=== PATIENT | male | born 1975 | race American Indian/Alaskan Native ===

== ENCOUNTER 2020-08-13 08:18 | Emergency (ER) | payer BC ==
[2020-08-13 10:37] VITALS: BP 187/139
[2020-08-13] MEDS ORDERED: amLODIPine 5 MG TAB PO ONE (10:44)
[2020-08-13] MEDS ORDERED: hydroCHLOROthiazide 25 MG TAB PO ONE ×2 (10:44→10:49)
--- NOTE | 2020-08-13 10:50 | Emergency Department Report ---
ED General Adult HPI - General Chief complaint: High BP Stated complaint: HBP Time Seen by Provider: 08/13/20 10:31 Source: patient Mode of arrival: Ambulatory Limitations: No Limitations - History of Present Illness Initial comments: The patient presents to the emergency department with a chief complaint of elevated blood pressure. Patient states that his blood pressure was 212/110 while at work today. Patient denies chest pain, shortness breath, or headache. Patient states he ran out of his blood pressure medication and January right before shutdown secondary to COVID. -: unknown Severity scale (0 -10): 0 Consistency: constant Improves with: none Worsens with: none Associated Symptoms: denies other symptoms Treatments Prior to Arrival: none - Related Data Previous Rx's Medication Instructions Recorded Last Taken Type amLODIPine [Norvasc] 10 mg PO DAILY #30 tab 08/13/20 Unknown Rx hydroCHLOROthiazide [Hctz] 12.5 mg PO QDAY #30 capsule 08/13/20 Unknown Rx ED Review of Systems ROS: Stated complaint: HBP Other details as noted in HPI Comment: All other systems reviewed and negative Constitutional: denies: chills, fever Eyes: denies: eye pain, eye discharge, vision change ENT: denies: ear pain, throat pain Respiratory: denies: cough, shortness of breath, wheezing Cardiovascular: denies: chest pain, palpitations Endocrine: no symptoms reported Gastrointestinal: denies: abdominal pain, nausea, diarrhea Genitourinary: denies: urgency, dysuria Musculoskeletal: denies: back pain, joint swelling, arthralgia Skin: denies: rash, lesions Neurological: denies: headache, weakness, paresthesias Psychiatric: denies: anxiety, depression Hematological/Lymphatic: denies: easy bleeding, easy bruising ED Past Medical Hx - Social History Smoking Status: Current Some Day Smoker Substance Use Type: None - Medications Home Medications: Home Medications Medication Instructions Recorded Confirmed Last Taken Type amLODIPine [Norvasc] 10 mg PO DAILY #30 tab 08/13/20 Unknown Rx hydroCHLOROthiazide [Hctz] 12.5 mg PO QDAY #30 capsule 08/13/20 Unknown Rx ED Physical Exam - General Limitations: No Limitations General appearance: alert, in no apparent distress - Head Head exam: Present: atraumatic, normocephalic - Eye Eye exam: Present: normal appearance, PERRL, EOMI - ENT ENT exam: Present: mucous membranes moist - Neck Neck exam: Present: normal inspection - Respiratory Respiratory exam: Present: normal lung sounds bilaterally. Absent: respiratory distress, wheezes, rales - Cardiovascular Cardiovascular Exam: Present: regular rate, normal rhythm. Absent: systolic murmur, diastolic murmur, rubs, gallop - GI/Abdominal GI/Abdominal exam: Present: soft, normal bowel sounds. Absent: distended, tenderness - Rectal Rectal exam: Present: deferred - Extremities Exam Extremities exam: Present: normal inspection - Back Exam Back exam: Present: normal inspection - Neurological Exam Neurological exam: Present: alert, oriented X3, CN II-XII intact. Absent: motor sensory deficit - Psychiatric Psychiatric exam: Present: normal affect, normal mood - Skin Skin exam: Present: warm, dry, intact, normal color. Absent: rash ED Course Vital Signs 08/13/20 08/13/20 08:31 10:37 Temperature 97.6 F Pulse Rate 104 H Respiratory 18 Rate Blood Pressure 192/130 Blood Pressure 192/130 187/139 [Right] O2 Sat by Pulse 99 Oximetry ED Medical Decision Making - Medical Decision Making Discussed plan of care with patient and need for outpatient follow up Critical care attestation.: If time is entered above; I have spent that time in minutes in the direct care of this critically ill patient, excluding procedure time. ED Disposition Clinical Impression: Hypertension Disposition: - TO HOME OR SELFCARE Is pt being admited?: No Does the pt Need Aspirin: No Condition: Stable Instructions: Hypertension (ED) Additional Instructions: return if have CP or SOB Prescriptions: amLODIPine [Norvasc] 10 mg PO DAILY #30 tab hydroCHLOROthiazide [Hctz] 12.5 mg PO QDAY #30 capsule Referrals: PRIMARY CAREMD [Primary Care Provider] - 3-5 Days [facility] [Outside] - 3-5 Days [facility] [Provider Group] - 3-5 Days [facility] [Provider Group] - 3-5 Days TESFAYE VALLE MD [Staff Physician] - 3-5 Days Time of Disposition: 10:46
== END 2020-08-13 11:38 | disposition home or self-care (01) ==
LOC: ED 08:18
DX: I10 Essential (primary) hypertension (principal); F17.200 Nicotine dependence, unspecified, uncomplicated; Z79.899 Other long term (current) drug therapy
CPT/HCPCS: 99282

== ENCOUNTER 2020-10-19 10:58 | Emergency (ER) | payer BC ==
--- NOTE | 2020-10-19 11:55 | Event Note ---
ED Screening Note Date of service: 10/19/20 Time: 11:54 ED Screening Note: Patient complains of chills, body aches, and an episode of shortness of breath last night Denies any current shortness of breath or chest pain Admits to diarrhea Also complains of elevated blood pressure-states had a blood pressure medicine x2 months Tachycardia noted on exam This initial assessment/diagnostic orders/clinical plan/treatment(s) is/are subject to change based on patients health status, clinical progression and re- assessment by fellow clinical providers in the ED. Further treatment and workup at subsequent clinical providers discretion. Patient/guardian urged not to elope from the ED as their condition may be serious if not clinically assessed and managed. Initial orders include: Labs Chest xr
--- NOTE | 2020-10-19 12:44 | XRay Report ---
CHEST 2 VIEWS INDICATION / CLINICAL INFORMATION: tachycardia, SOB. COMPARISON: None available. FINDINGS: SUPPORT DEVICES: None. HEART / MEDIASTINUM: No significant abnormality. LUNGS / PLEURA: No significant pulmonary or pleural abnormality. No pneumothorax. ADDITIONAL FINDINGS: No significant additional findings. IMPRESSION: No significant abnormality Signer Name: Hung Dominique MD FACR Signed: 10/19/2020 12:39 PM Workstation Name: [id number]
[2020-10-19 13:17] LABS: Basophils % (Auto) 0.3 % (0.0-1.8); Eosinophils # (Auto) 0.2 K/mm3 (0.0-0.4); Eosinophils % (Auto) 1.6 % (0.0-4.3); Hemoglobin 11.2 gm/dl (11.8-15.2); Lymphocytes # (Auto) 1.1 K/mm3 (1.2-5.4); Lymphocytes % (Auto) 9.7 % (13.4-35.0); Mean Corpuscular HGB Conc 32 % (32-34); Mean Corpuscular Volume 77 fl (84-94); Monocytes # (Auto) 0.3 K/mm3 (0.0-0.8); Platelet Count 359 K/mm3 (140-440); Red Blood Count 4.58 M/mm3 (3.65-5.03); Red Cell Distribution Width 13.9 % (13.2-15.2)
[2020-10-19 13:36] LABS: Alanine Aminotransferase 23 units/L (7-56); Albumin 3.7 g/dL (3.9-5); BUN/Creatinine Ratio 9; Blood Urea Nitrogen 12 mg/dL (9-20); Calcium 9.5 mg/dL (8.4-10.2); Hemolysis Index 2
[2020-10-19] MEDS ORDERED: SODIUM CHLORIDE 0.9% 1000 ML 1,000 ML IV ONE (15:01)
--- NOTE | 2020-10-19 15:03 | Emergency Department Report ---
ED General Adult HPI - General Chief complaint: Upper Respiratory Infection Stated complaint: BODY ACHES/BLOOD PRESSURE Time Seen by Provider: 10/19/20 11:29 Source: patient Mode of arrival: Ambulatory Limitations: No Limitations - History of Present Illness Initial comments: 45-year-old male with a past history of hypertension presents to the ER today c omplaining of generalized body aches. Patient states that he has been having this body aches for about a month mainly at night when he is working. He states that he feels like his symptoms is getting worse over the past month. He states he does not currently have a primary care doctor and therefore has not followed up with a doctor about his symptoms. He states that at night when he works he f eels very cold despite the temperature in the room. He states that his symptoms still occur off and on during the day but mainly at night while she is at work he also gets diaphoretic while he is at work. He states that he has been monitoring his temperatures, and he has noticed that his temperatures has been increasing from 96 degrees orally up to 98, but 98 is the highest temperature he is measured. He reports a "little" diarrhea 2 days ago but this has since resolved. Reports "a little" shortness of breath this morning but this is now better. He denies any cough, he denies any chest pain, abdominal pain or vomiting or UTI symptoms. Other than the hypertension, he denies past medical history such as coronary artery disease, diabetes, lung disease, or any other significant past medical history. Patient does admit that he stopped taking her blood pressure medication 2 months ago because he developed a rash while he was taking it. He has never since followed up with a provider to get restarted on a different medication. MD Complaint: Body aches -: month(s) (1 ) Severity scale (0 -10): 0 - Related Data Previous Rx's Medication Instructions Recorded Last Taken Type Ketorolac [Toradol] 10 mg PO Q6H PRN #30 tablet 10/19/20 Unknown Rx lisinopriL [Zestril TAB] 20 mg PO QDAY #30 tablet 10/19/20 Unknown Rx methOCARBAMOL [Robaxin TAB] 500 mg PO TID PRN #30 tablet 10/19/20 Unknown Rx Allergies Allergy/AdvReac Type Severity Reaction Status Date / Time No Known Allergies Allergy Unverified 10/19/20 11:10 ED Review of Systems ROS: Stated complaint: BODY ACHES/BLOOD PRESSURE Other details as noted in HPI Comment: All other systems reviewed and negative Constitutional: denies: chills, fever ENT: denies: ear pain, throat pain Respiratory: shortness of breath (" a little" this morning but this has since resolved. ) Cardiovascular: denies: chest pain, palpitations Gastrointestinal: diarrhea ("a little" 2 days ago). denies: abdominal pain, nausea Genitourinary: denies: urgency, dysuria Skin: denies: rash, lesions Neurological: denies: headache, weakness, paresthesias Psychiatric: denies: anxiety, depression ED Past Medical Hx - Past Medical History Previous Medical History?: Yes Hx Hypertension: Yes - Surgical History Past Surgical History?: No - Social History Smoking Status: Former Smoker Substance Use Type: Alcohol - Medications Home Medications: Home Medications Medication Instructions Recorded Confirmed Last Taken Type Ketorolac [Toradol] 10 mg PO Q6H PRN #30 tablet 10/19/20 Unknown Rx lisinopriL [Zestril TAB] 20 mg PO QDAY #30 tablet 10/19/20 Unknown Rx methOCARBAMOL [Robaxin TAB] 500 mg PO TID PRN #30 tablet 10/19/20 Unknown Rx ED Physical Exam - General Limitations: No Limitations General appearance: alert, in no apparent distress - Head Head exam: Present: atraumatic, normocephalic, normal inspection - Eye Eye exam: Present: normal appearance, PERRL, EOMI Pupils: Present: normal accommodation - ENT ENT exam: Present: normal exam, normal orophraynx, mucous membranes moist - Neck Neck exam: Present: normal inspection, full ROM. Absent: meningismus - Respiratory Respiratory exam: Present: normal lung sounds bilaterally. Absent: respiratory distress - Cardiovascular Cardiovascular Exam: Present: normal rhythm, tachycardia, normal heart sounds - GI/Abdominal GI/Abdominal exam: Present: soft. Absent: distended, tenderness - Extremities Exam Extremities exam: Present: normal inspection, full ROM - Back Exam Back exam: Present: full ROM - Neurological Exam Neurological exam: Present: alert, oriented X3, CN II-XII intact, normal gait - Psychiatric Psychiatric exam: Present: normal affect, normal mood - Skin Skin exam: Present: intact ED Course Vital Signs 10/19/20 10/19/20 10/19/20 11:10 11:14 14:27 Temperature 98.9 F 98.9 F Pulse Rate 121 H 120 H 110 H Respiratory 18 18 Rate Blood Pressure 162/108 Blood Pressure 162/108 [Right] O2 Sat by Pulse 100 97 Oximetry 10/19/20 15:16 Temperature 99.2 F Pulse Rate 111 H Respiratory 14 Rate Blood Pressure 165/115 Blood Pressure [Right] O2 Sat by Pulse 100 Oximetry ED Medical Decision Making - Lab Data Result diagrams: 10/19/20 12:37 10/19/20 12:37 - EKG Data EKG shows normal: sinus rhythm (98) Rate: normal - EKG Data Interpretation: no acute changes - Radiology Data Radiology results: report reviewed Critical care attestation.: If time is entered above; I have spent that time in minutes in the direct care of this critically ill patient, excluding procedure time. ED Disposition Clinical Impression: Muscle ache, Viral illness, Uncontrolled hypertension Disposition: - TO HOME OR SELFCARE Is pt being admited?: No Does the pt Need Aspirin: No Condition: Stable Instructions: Hypertension (ED), Musculoskeletal Pain, Viral Illness, Adult, Hypertension, Adult, [id number] Additional Instructions: I recommend that you start taking the blood pressure medication prescribed. I recommend follow up with PCP given on d/c instructions. You can follow up with health department for outpatient COVID 19 testing or urgent care. Return to ED if your symptoms changes or worsens. Prescriptions: methOCARBAMOL [Robaxin TAB] 500 mg PO TID PRN #30 tablet PRN Reason: Pain , Severe (7-10) Ketorolac [Toradol] 10 mg PO Q6H PRN #30 tablet PRN Reason: Pain lisinopriL [Zestril TAB] 20 mg PO QDAY #30 tablet Referrals: LIZA SIMON MD [Staff Physician] - 3-5 Days Forms: Work/School Release Form(ED) Time of Disposition: 16:45
[2020-10-19 15:18] VITALS: BP 165/115
[2020-10-19 16:09] LABS: Bilirubin,Urine NEG (Negative); Blood,Urine SM (Negative); Color,Urine Yellow (Yellow); Mucus,Urine FEW /HPF; RBC,Urine < 1.0 /HPF (0.0-6.0); WBC,Urine < 1.0 /HPF (0.0-6.0)
== END 2020-10-19 17:27 | disposition home or self-care (01) ==
LOC: ED 10:58
DX: B34.9 Viral infection, unspecified (principal); M79.10 Myalgia, unspecified site; I10 Essential (primary) hypertension; Z79.899 Other long term (current) drug therapy; Z87.891 Personal history of nicotine dependence
CPT/HCPCS: 36415; 71046; 80053; 81001; 84484; 85025; 93005; 96360; 99284; J7030

== ENCOUNTER 2021-11-30 09:33 | Emergency (ER) | payer SELFPAY ==
[2021-11-30] MEDS ORDERED: ACETAMINOPHEN 500 MG TAB PO ONE (13:19)
[2021-11-30] MEDS ORDERED: SODIUM CHLORIDE 0.9% 1000 ML 1,000 ML IV ONE (13:19)
--- NOTE | 2021-11-30 13:27 | Emergency Department Report ---
HPI - General Chief Complaint: Upper Respiratory Infection Time Seen by Provider: 11/30/21 10:55 - HPI HPI: 46-year-old male with history of hypertension and anemia presents complaining of 2 weeks of cough and congestion now with palpitations and shortness of breath on exertion. He says the symptoms started and were initially mild with just cough and congestion. However, over the past couple days he has noticed that his heart rate has been racing and he feels short of breath when walking even short distances. For this reason he decided to come in for further evaluation. He is fully vaccinated against COVID-19 but has not yet received a booster. He denies any associated headache, vision change, neck pain, chest pain, syncope, shortness of breath at rest, abdominal pain, nausea/vomiting, focal weakness, sensory changes, or any other complaints. ED Past Medical Hx - Past Medical History Hx Hypertension: Yes Additional medical history: anemia - Social History Smoking Status: Former Smoker Substance Use Type: Alcohol - Medications Home Medications: Home Medications Medication Instructions Recorded Confirmed Last Taken Type Ketorolac [Toradol] 10 mg PO Q6H PRN #30 tablet 10/19/20 Unknown Rx lisinopriL [Zestril TAB] 20 mg PO QDAY #30 tablet 10/19/20 Unknown Rx methOCARBAMOL [Robaxin TAB] 500 mg PO TID PRN #30 tablet 10/19/20 Unknown Rx Azithromycin [Zithromax Z-ABDIAZIZ] 0 mg PO DAILY #1 pack 11/30/21 Unknown Rx Omeprazole 40 mg PO DAILY #14 cap 11/30/21 Unknown Rx ED Review of Systems ROS: Stated complaint: FEVER Other details as noted in HPI Comment: All other systems reviewed and negative Constitutional: denies: chills, diaphoresis Eyes: denies: eye pain, vision change ENT: denies: throat pain, dental pain Respiratory: cough, SOB with exertion Cardiovascular: palpitations, dyspnea on exertion. denies: chest pain Gastrointestinal: denies: abdominal pain, nausea, vomiting, diarrhea, consti pation, melena, hematochezia Genitourinary: denies: dysuria, frequency Musculoskeletal: denies: back pain, arthralgia Skin: denies: rash, lesions Neurological: denies: headache, weakness, numbness Hematological/Lymphatic: denies: easy bleeding Physical Exam - Physical Exam Vital Signs: Vital Signs 11/30/21 11/30/21 11/30/21 09:37 09:41 13:06 Temperature 99.2 F Pulse Rate 127 H 110 H Respiratory 16 Rate Blood Pressure 128/65 O2 Sat by Pulse 91 93 97 Oximetry Physical Exam: GENERAL: Well developed and well nourished. No acute distress HEAD: Normocephalic. No obvious signs of trauma. ENT: Dry mucous membranes. EYES: Extraocular movements are intact. Pupils are equal round and reactive to light bilaterally NECK: Supple. Full ROM is intact. Trachea is midline. LUNGS: Nonlabored breathing. Equal chest rise bilaterally. Clear to auscultation bilaterally. CARDIOVASCULAR: Tachycardic but with regular rhythm. No murmurs or rubs. VASCULAR: Cap refill < 2 seconds ABDOMEN: Abdomen is soft and nondistended. There is no significant tenderness, guarding or rebound. SKIN: Skin is warm and dry NEURO: Patient is awake, alert, and oriented. nsh teacher II-XII grossly intact. No focal deficits. Normal motor and sensory exam throughout. Normal speech. MUSCULOSKELETAL: No obvious deformities. No significant tenderness. Normal ROM throughout. BACK/SPINE: No midline tenderness or step-offs of the C/T/L spine. No costovertebral angle tenderness. ED Course Vital Signs 11/30/21 11/30/21 11/30/21 09:37 09:41 13:06 Temperature 99.2 F Pulse Rate 127 H 110 H Respiratory 16 Rate Blood Pressure 128/65 O2 Sat by Pulse 91 93 97 Oximetry ED Medical Decision Making - Lab Data Result diagrams: 11/30/21 13:44 11/30/21 13:44 Lab Results 11/30/21 11/30/21 11/30/21 Range/Units 13:44 13:44 13:44 WBC 12.1 H (4.5-11.0) K/mm3 RBC 4.61 (3.65-5.03) M/mm3 Hgb 8.7 L (11.8-15.2) gm/dl Hct 29.8 L (35.5-45.6) % MCV 65 L (84-94) fl MCH 19 L (28-32) pg MCHC 29 L (32-34) % RDW 19.4 H (13.2-15.2) % Plt Count 577 H (140-440) K/mm3 Lymph % (Auto) 18.1 (13.4-35.0) % Bladen % (Auto) 2.9 (0.0-7.3) % Eos % (Auto) 2.9 (0.0-4.3) % Baso % (Auto) 0.3 (0.0-1.8) % Lymph # (Auto) 2.2 (1.2-5.4) K/mm3 Bladen # (Auto) 0.3 (0.0-0.8) K/mm3 Eos # (Auto) 0.3 (0.0-0.4) K/mm3 Baso # (Auto) 0.0 (0.0-0.1) K/mm3 Seg Neutrophils % 75.8 H (40.0-70.0) % Seg Neutrophils # 9.2 H (1.8-7.7) K/mm3 Sodium (137-145) mmol/L Potassium (3.6-5.0) mmol/L Chloride (98-107) mmol/L Carbon Dioxide (22-30) mmol/L Anion Gap mmol/L BUN (9-20) mg/dL Creatinine (0.8-1.3) mg/dL Estimated GFR ml/min BUN/Creatinine Ratio % Glucose (75-100) mg/dL Lactic Acid 1.00 (0.7-2.0) mmol/L Calcium (8.4-10.2) mg/dL Magnesium (1.7-2.3) mg/dL Total Bilirubin (0.1-1.2) mg/dL Direct Bilirubin (0-0.2) mg/dL Indirect Bilirubin mg/dL AST (5-40) units/L ALT (7-56) units/L Alkaline Phosphatase (35-129) units/L Troponin T 0.026 (0.00-0.029) ng/mL Total Protein (6.3-8.2) g/dL Albumin (3.9-5) g/dL Albumin/Globulin Ratio % 11/30/21 11/30/21 Range/Units 13:44 15:20 WBC (4.5-11.0) K/mm3 RBC (3.65-5.03) M/mm3 Hgb (11.8-15.2) gm/dl Hct (35.5-45.6) % MCV (84-94) fl MCH (28-32) pg MCHC (32-34) % RDW (13.2-15.2) % Plt Count (140-440) K/mm3 Lymph % (Auto) (13.4-35.0) % Bladen % (Auto) (0.0-7.3) % Eos % (Auto) (0.0-4.3) % Baso % (Auto) (0.0-1.8) % Lymph # (Auto) (1.2-5.4) K/mm3 Bladen # (Auto) (0.0-0.8) K/mm3 Eos # (Auto) (0.0-0.4) K/mm3 Baso # (Auto) (0.0-0.1) K/mm3 Seg Neutrophils % (40.0-70.0) % Seg Neutrophils # (1.8-7.7) K/mm3 Sodium 137 (137-145) mmol/L Potassium 3.7 (3.6-5.0) mmol/L Chloride 101.4 (98-107) mmol/L Carbon Dioxide 21 L (22-30) mmol/L Anion Gap 18 mmol/L BUN 11 (9-20) mg/dL Creatinine 0.7 L (0.8-1.3) mg/dL Estimated GFR > 60 ml/min BUN/Creatinine Ratio 16 % Glucose 90 (75-100) mg/dL Lactic Acid 0.90 (0.7-2.0) mmol/L Calcium 9.1 (8.4-10.2) mg/dL Magnesium 2.10 (1.7-2.3) mg/dL Total Bilirubin 0.20 (0.1-1.2) mg/dL Direct Bilirubin < 0.2 (0-0.2) mg/dL Indirect Bilirubin 0.0 mg/dL AST 33 (5-40) units/L ALT 33 (7-56) units/L Alkaline Phosphatase 49 (35-129) units/L Troponin T (0.00-0.029) ng/mL Total Protein 7.6 (6.3-8.2) g/dL Albumin 3.2 L (3.9-5) g/dL Albumin/Globulin Ratio 0.7 % - Radiology Data Radiology results: report reviewed - Medical Decision Making 46-year-old male presenting with 2 weeks of URI symptoms and shortness of breath with exertion. He is afebrile but with temp of 99.7. He is tachycardic with a heart rate in the 120s. Although it is charted that the patient was initially hypoxic, I was assured by the triage nurse that the patient was never hypoxic and this was entered in error. On exam he has dry mucous membranes. Lungs are clear to auscultation. He is tachycardic but with regular rhythm. He has no abdominal tenderness. There is no CVA tenderness. We will perform broad work- up with a full set of labs, chest x-ray, EKG and cultures. We will give 1 L of IV fluids and Tylenol and reassess. Labs reveal white blood cell count of 12.1. He is anemic with hemoglobin of 8.7 with low MCV. Kidney function is within normal limits and there are no significant electrolyte abnormalities. Lactic acid is negative. Troponin is negative. Heart rate has improved to the 110s on repeat assessment after IV fluids. Review of the patient's past medical records reveals that his last recorded hemoglobin from 1 year ago was 11. For this reason rectal exam was performed with nurse present as beet worker which reveals normal brown appearing stool which is Hemoccult positive. We will give 80 mg of Protonix and consult GI. At 4:38 PM I spoke with Dr. Forde of GI regarding the case. He recommends discharge with 14 days of PPI and follow-up in the office. The patient reports that all of his symptoms have resolved and he wants to be discharged home. Discussed the plan of care and he expressed understanding and agreement he will be discharged with 14 days of omeprazole. After discharge patient's chest x-ray came back revealing findings consistent with atypical pneumonia. I spoke with the patient over the phone regarding these findings and the need for self-isolation given the possibility of COVID-19 pneumonia. I also requested that he picking table worker a prescription for azithromycin which she says he will do tomorrow. I advised him to return to the emergency department at any time should he experience worsening symptoms or new health concerns. He expressed understanding and agreement with this plan of care. Critical care attestation.: If time is entered above; I have spent that time in minutes in the direct care of this critically ill patient, excluding procedure time. ED Disposition Clinical Impression: Symptomatic anemia, GI bleed, Upper respiratory infection, Pneumonia Disposition: 01 HOME / SELF CARE / HOMELESS Is pt being admited?: No Instructions: Upper Respiratory Infection, Adult, [id number], Gastr ointestinal Bleeding, [id number], Community-Acquired Pneumonia, Adult, Bacterial Pneumonia (ED) Additional Instructions: Your labs show that you are anemic with a hemoglobin of 8.7. There is blood present in your stool. You will need to follow-up with a primary care doctor in the next several days to have repeat labs drawn. Please take the prescription exactly as prescribed. You should also follow-up with a bread dumper which I have given you a referral for. Return to the emergency department should you develop any new concerning symptoms. Prescriptions: Omeprazole 40 mg PO DAILY #14 cap Azithromycin [Zithromax Z-ABDIAZIZ] 0 mg PO DAILY #1 pack Referrals: [facility] [Provider Group] - 3-5 Days CLEVE ARRIAGA MD [Staff Physician] - 3-5 Days
--- NOTE | 2021-11-30 14:17 | XRay Report ---
CHEST 2 VIEWS INDICATION / CLINICAL INFORMATION: sob, tachy. COMPARISON: 10/19/2020 FINDINGS: SUPPORT DEVICES: None. HEART / MEDIASTINUM: No significant abnormality. LUNGS / PLEURA: Patchy opacities involving the bilateral lungs, predominantly within the mid and lowe r lung zones. No significant effusion. No pneumothorax. ADDITIONAL FINDINGS: No significant additional findings. IMPRESSION: 1. Multilobar pneumonia, suspicious for viral and/or atypical etiology. Signer Name: Gonzalo Irvin MD Signed: 11/30/2021 2:12 PM Workstation Name: [email or web address]
[2021-11-30 14:19] LABS: Basophils % (Auto) 0.3 % (0.0-1.8); Eosinophils # (Auto) 0.3 K/mm3 (0.0-0.4); Eosinophils % (Auto) 2.9 % (0.0-4.3); Lymphocytes # (Auto) 2.2 K/mm3 (1.2-5.4); Lymphocytes % (Auto) 18.1 % (13.4-35.0); Mean Corpuscular HGB Conc 29 % (32-34); Monocytes # (Auto) 0.3 K/mm3 (0.0-0.8); Monocytes % (Auto) 2.9 % (0.0-7.3); Platelet Count 577 K/mm3 (140-440); Red Blood Count 4.61 M/mm3 (3.65-5.03); Red Cell Distribution Width 19.4 % (13.2-15.2)
[2021-11-30 14:21] LABS: Hematocrit 29.8 % (35.5-45.6); Hemoglobin 8.7 gm/dl (11.8-15.2); Mean Corpuscular Volume 65 fl (84-94)
[2021-11-30 14:45] LABS: Alanine Aminotransferase 33 units/L (7-56); Albumin 3.2 g/dL (3.9-5); Blood Urea Nitrogen 11 mg/dL (9-20); Calcium 9.1 mg/dL (8.4-10.2); Hemolysis Index 0
[2021-11-30 14:50] LABS: BUN/Creatinine Ratio 16; Bilirubin,Direct < 0.2 mg/dL (0-0.2)
[2021-11-30] MEDS ORDERED: PANTOPRAZOLE 40 MG INJ IV ONE (16:24)
[2021-11-30 16:30] VITALS: BP 113/71
== END 2021-11-30 17:41 | disposition home or self-care (01) ==
LOC: ED 09:33
DX: J18.9 Pneumonia, unspecified organism (principal); J06.9 Acute upper respiratory infection, unspecified; D64.9 Anemia, unspecified; K92.2 Gastrointestinal hemorrhage, unspecified
CPT/HCPCS: 36415; 71046; 80048; 80076; 82140; 82271; 83735; 84484; 85025; 87040; 96361; 96374; 99284; C9113; J7030; Q0162

== ENCOUNTER 2022-02-09 10:29 | Outpatient (CLI) | payer OTHER ==
--- NOTE | 2022-02-09 11:22 | XRay Report ---
CHEST 2 VIEWS INDICATION / CLINICAL INFORMATION: R06.02 SOB. COMPARISON: 11/30/21. FINDINGS: SUPPORT DEVICES: None. HEART / MEDIASTINUM: The heart size and pulmonary vasculature are normal. LUNGS / PLEURA: There are moderately severe patchy parenchymal opacities throughout both lungs which are predominantly groundglass in appearance and unchanged. Associated septal thickening is noted. Dis ease is most prominent in the mid to lower lung zones. No new pulmonary abnormality. No pleural effus ion. No pneumothorax. ADDITIONAL FINDINGS: No significant additional findings. IMPRESSION: Moderately severe patchy parenchymal opacities throughout both lungs have not changed sig nificantly. No new abnormality. Signer Name: Rey Mark MD Signed: 02/09/2022 11:17 AM Workstation Name: [id number]
== END 2022-02-09 10:30 | disposition home or self-care (01) ==
LOC: XRAY 10:29
PROVIDERS: ATTEND Internal Medicine
DX: R06.02 Shortness of breath (principal)
CPT/HCPCS: 71046

== ENCOUNTER 2022-04-01 12:18 | Inpatient (IN) | payer SELFPAY ==
[2022-04-01 13:56] LABS: Basophils # (Auto) 0.1 K/mm3 (0.0-0.1); Basophils % (Auto) 0.3 % (0.0-1.8); Eosinophils # (Auto) 0.1 K/mm3 (0.0-0.4); Eosinophils % (Auto) 0.7 % (0.0-4.3); Lymphocytes # (Auto) 1.9 K/mm3 (1.2-5.4); Lymphocytes % (Auto) 10.3 % (13.4-35.0); Mean Corpuscular HGB Conc 29 % (32-34); Monocytes # (Auto) 0.6 K/mm3 (0.0-0.8); Monocytes % (Auto) 3.2 % (0.0-7.3); Platelet Count 739 K/mm3 (140-440); Red Blood Count 4.38 M/mm3 (3.65-5.03); Red Cell Distribution Width 19.8 % (13.2-15.2)
[2022-04-01 13:58] LABS: Hematocrit 27.7 % (35.5-45.6); Hemoglobin 8.1 gm/dl (11.8-15.2); Mean Corpuscular Volume 63 fl (84-94)
[2022-04-01 14:07] LABS: INR 1.18 (0.87-1.13)
[2022-04-01 14:08] LABS: Partial Thromboplastin Time 44.2 Sec. (24.2-36.6)
[2022-04-01 14:11] LABS: Alanine Aminotransferase 26 units/L (7-56); Albumin 3.4 g/dL (3.9-5); Blood Urea Nitrogen 13 mg/dL (9-20); Calcium 8.7 mg/dL (8.4-10.2); Hemolysis Index 4
[2022-04-01 14:18] LABS: BUN/Creatinine Ratio 22
--- NOTE | 2022-04-01 14:22 | XRay Report ---
XR chest routine 2V INDICATION / CLINICAL INFORMATION: SOB. COMPARISON: 02/09/2022, 11/30/2019 FINDINGS: SUPPORT DEVICES: None. HEART / MEDIASTINUM: No significant abnormality. LUNGS / PLEURA: Lung parenchyma is not significantly changed. Unchanged reticulation and bronchiolect asis. Costophrenic sulci are sharp. No pneumothorax. ADDITIONAL FINDINGS: No significant additional findings. IMPRESSION: 1. No acute findings. Interstitial lung disease is similar. Signer Name: Lukas Lacy MD Signed: 04/01/2022 2:18 PM Workstation Name: [id number]
--- NOTE | 2022-04-01 15:44 | Emergency Department Report ---
ED Shortness of Breath HPI - General Chief Complaint: Dyspnea/Respdistress Stated Complaint: SOB Time Seen by Provider: 04/01/22 15:36 Source: patient Mode of arrival: Ambulatory Limitations: No Limitations - History of Present Illness Initial Comments: 46-year-old non-smoker male with a past medical history of hypertension and anemia presents to the hospital complaining of persistent dyspnea exertion, cough, and abnormal chest x-ray. Patient was seen here in November for similar symptoms. He was diagnosed with multifocal pneumonia and was discharged on azithromycin. Patient is vaccinated for COVID however, he did not receive the booster. He did obtain a COVID test in November after ED presentation and states it was negative. He has since followed with Dr. Russell as recently as 2 days ago. He reports that his x-ray is unchanged and he has been referred to a patient relations representative. Patient presents today due to his persistent worsening symptoms of cough, fatigue, and a 3 pound weight loss in 3 months. - Related Data Previous Rx's Medication Instructions Recorded Last Taken Type Ketorolac [Toradol] 10 mg PO Q6H PRN #30 tablet 10/19/20 Unknown Rx lisinopriL [Zestril TAB] 20 mg PO QDAY #30 tablet 10/19/20 Unknown Rx methOCARBAMOL [Robaxin TAB] 500 mg PO TID PRN #30 tablet 10/19/20 Unknown Rx Azithromycin [Zithromax Z-ABDIAZIZ] 0 mg PO DAILY #1 pack 11/30/21 Unknown Rx Omeprazole 40 mg PO DAILY #14 cap 11/30/21 Unknown Rx Allergies Allergy/AdvReac Type Severity Reaction Status Date / Time No Known Allergies Allergy Verified 11/30/21 09:40 ED Review of Systems ROS: Stated complaint: SOB Other details as noted in HPI Comment: All other systems reviewed and negative ED Past Medical Hx - Past Medical History Previous Medical History?: Yes Hx Hypertension: Yes Additional medical history: anemia, sob, PNEUMONIA - Surgical History Past Surgical History?: No - Social History Smoking Status: Never Smoker Substance Use Type: Alcohol - Medications Home Medications: Home Medications Medication Instructions Recorded Confirmed Last Taken Type Ketorolac [Toradol] 10 mg PO Q6H PRN #30 tablet 10/19/20 Unknown Rx lisinopriL [Zestril TAB] 20 mg PO QDAY #30 tablet 11/24/20 Unknown Rx methOCARBAMOL [Robaxin TAB] 500 mg PO TID PRN #30 tablet 10/19/20 Unknown Rx Azithromycin [Zithromax Z-ABDIAZIZ] 0 mg PO DAILY #1 pack 11/30/21 Unknown Rx Omeprazole 40 mg PO DAILY #14 cap 11/30/21 Unknown Rx ED Physical Exam - General Limitations: No Limitations - Other Other exam information: General: No acute distress Head: Atraumatic Eyes: normal appearance ENT: Moist mucous membranes Neck: Normal appearance, no midline tenderness Chest: Tachypnea at rest without wheezing or rales CV: Regular rate and rhythm Abdomen: Soft, normal bowel sounds, nontender, nondistended, no rebound or guarding Back: Normal inspection Extremity: Clubbing noted to nails Neuro: Alert O x 3, no facial asymmetry, speech clear, no gross motor sensory deficit Psych: Appropriate behavior Skin: No rash ED Course Vital Signs 04/01/22 04/01/22 04/01/22 15:40 15:41 15:43 Temperature 98.0 F Pulse Rate 106 H 106 H Pulse Rate [ Bilateral Throughout] Respiratory 42 H 24 20 Rate Respiratory Rate [Bilateral Throughout] Blood Pressure 102/68 [Right] O2 Sat by Pulse 100 100 100 Oximetry 04/01/22 16:48 Temperature Pulse Rate Pulse Rate [ 98 H Bilateral Throughout] Respiratory Rate Respiratory 18 Rate [Bilateral Throughout] Blood Pressure [Right] O2 Sat by Pulse Oximetry - Reevaluation(s) Reevaluation #1: 04/01/22 18:15 FVC Xopenex and Atrovent the ED patient's respirations were reassessed by respiratory therapist. At rest his O2 saturations were 95 to 97%. With ambulation his pulse ox drops down to 90% and his heart rate increases to the 130s with noticeable tachypnea ED Medical Decision Making - Lab Data Result diagrams: 04/01/22 13:39 04/01/22 13:39 Lab Results 04/01/22 04/01/22 04/01/22 Range/Units 13:39 13:39 13:39 WBC 18.1 H (4.5-11.0) K/mm3 RBC 4.38 (3.65-5.03) M/mm3 Hgb 8.1 L (11.8-15.2) gm/dl Hct 27.7 L (35.5-45.6) % MCV 63 L (84-94) fl MCH 19 L (28-32) pg MCHC 29 L (32-34) % RDW 19.8 H (13.2-15.2) % Plt Count 739 H (140-440) K/mm3 Lymph % (Auto) 10.3 L (13.4-35.0) % [place] % (Auto) 3.2 (0.0-7.3) % Eos % (Auto) 0.7 (0.0-4.3) % Baso % (Auto) 0.3 (0.0-1.8) % Lymph # (Auto) 1.9 (1.2-5.4) K/mm3 [place] # (Auto) 0.6 (0.0-0.8) K/mm3 Eos # (Auto) 0.1 (0.0-0.4) K/mm3 Baso # (Auto) 0.1 (0.0-0.1) K/mm3 Seg Neutrophils % 85.5 H (40.0-70.0) % Seg Neutrophils # 15.5 H (1.8-7.7) K/mm3 PT 16.4 H (12.2-14.9) Sec. INR 1.18 H (0.87-1.13) APTT 44.2 H (24.2-36.6) Sec. Sodium 133 L (137-145) mmol/L Potassium 4.4 (3.6-5.0) mmol/L Chloride 96.7 L (98-107) mmol/L Carbon Dioxide 21 L (22-30) mmol/L Anion Gap 20 mmol/L BUN 13 (9-20) mg/dL Creatinine 0.6 L (0.8-1.3) mg/dL Estimated GFR > 60 ml/min BUN/Creatinine Ratio 22 % Glucose 88 (75-100) mg/dL Lactic Acid (0.7-2.0) mmol/L Calcium 8.7 (8.4-10.2) mg/dL Total Bilirubin 0.40 (0.1-1.2) mg/dL AST 42 H (5-40) units/L ALT 26 (7-56) units/L Alkaline Phosphatase 51 (35-129) units/L Total Protein 7.2 (6.3-8.2) g/dL Albumin 3.4 L (3.9-5) g/dL Albumin/Globulin Ratio 0.9 % 04/01/22 Range/Units 16:04 WBC (4.5-11.0) K/mm3 RBC (3.65-5.03) M/mm3 Hgb (11.8-15.2) gm/dl Hct (35.5-45.6) % MCV (84-94) fl MCH (28-32) pg MCHC (32-34) % RDW (13.2-15.2) % Plt Count (140-440) K/mm3 Lymph % (Auto) (13.4-35.0) % [place] % (Auto) (0.0-7.3) % Eos % (Auto) (0.0-4.3) % Baso % (Auto) (0.0-1.8) % Lymph # (Auto) (1.2-5.4) K/mm3 [place] # (Auto) (0.0-0.8) K/mm3 Eos # (Auto) (0.0-0.4) K/mm3 Baso # (Auto) (0.0-0.1) K/mm3 Seg Neutrophils % (40.0-70.0) % Seg Neutrophils # (1.8-7.7) K/mm3 PT (12.2-14.9) Sec. INR (0.87-1.13) APTT (24.2-36.6) Sec. Sodium (137-145) mmol/L Potassium (3.6-5.0) mmol/L Chloride (98-107) mmol/L Carbon Dioxide (22-30) mmol/L Anion Gap mmol/L BUN (9-20) mg/dL Creatinine (0.8-1.3) mg/dL Estimated GFR ml/min BUN/Creatinine Ratio % Glucose (75-100) mg/dL Lactic Acid 1.00 (0.7-2.0) mmol/L Calcium (8.4-10.2) mg/dL Total Bilirubin (0.1-1.2) mg/dL AST (5-40) units/L ALT (7-56) units/L Alkaline Phosphatase (35-129) units/L Total Protein (6.3-8.2) g/dL Albumin (3.9-5) g/dL Albumin/Globulin Ratio % - EKG Data -: EKG Interpreted by Mi EKG shows normal: sinus rhythm, ST-T waves (No STEMI) Rate: tachycardia (113) - Radiology Data Radiology results: report reviewed XR chest routine 2V INDICATION / CLINICAL INFORMATION: SOB. COMPARISON: 02/09/2022, 11/30/2019 FINDINGS: SUPPORT DEVICES: None. HEART / MEDIASTINUM: No significant abnormality. LUNGS / PLEURA: Lung parenchyma is not significantly changed. Unchanged re ticulation and bronchiolectasis. Costophrenic sulci are sharp. No pneumothorax. ADDITIONAL FINDINGS: No significant additional findings. IMPRESSION: 1. No acute findings. Interstitial lung disease is similar. CTA CHEST WITH CONTRAST INDICATION / CLINICAL INFORMATION: sob, cough, wt loss, abn cxr x 4 months. TECHNIQUE: Axial CT images were obtained through the chest after injection of IV contrast. 3 plane MIP and/or 3D reconstructions were produced. All CT scans at this location are performed using CT dose reduction for ALARA by means of automated exposure control. COMPARISON: None available. FINDINGS: Central pulmonary arteries are patent without definite filling defect or evidence for PTE. The more peripheral pulmonary arteries are very difficult to visualize due to motion also contrast in the peripheral aspect of the lungs most significant in right lower lung. There is extensive adenopathy with paratracheal hilar adenopathy is seen. Left paratracheal node measures 2.9 cm. Extensive axillary adenopathy is also seen. There is extensive pulmonary opacities with some nodular densities and irregularity throughout the chest. Greatest opacities with chronic interstitial changes noted as well with fibrosis. No acute bone findings UPPER ABDOMEN: No acute findings. SKELETAL STRUCTURES: No significant osseous abnormality. IMPRESSION: 1. No central PTE is identified. The peripheral pulmonary arteries are very difficult to evaluate due to bolus of contrast and motion throughout the examination. A peripheral PTE cannot be completely excluded. 2. Extensive mediastinal paratracheal hilar and axillary adenopathy. Follow-up is recommended. 3. Extensive pulmonary opacities with groundglass densities fibrosis and interstitial nodularity. Multiple nodular densities are seen in bilateral lungs. Findings could represent infectious etiology however follow-up to exclude malignancy. - Medical Decision Making 46 yo male with progressively worsening respiratory symptoms and significantly abnormal chest x-ray and CT. Patient denies smoking use. No known diagnosis of COVID patient has ambulatory hypoxia with respiratory distress despite bronchodilator treatment. He will be admitted to the hospital for further treatment and pulmonology consultation. He was treated for pneumonia. Cultures, COVID, and prolactin levels pending. Pulmonolgist consult ordered - Differential Diagnosis Pneumonia, cancer, bronchitis, HIV, COVID Critical Care Time: No Critical care attestation.: If time is entered above; I have spent that time in minutes in the direct care of this critically ill patient, excluding procedure time. ED Disposition Clinical Impression: Interstitial lung disease, Leukocytosis, Anemia, Hypoxia, Multiple lung nodules on CT, Pneumonia Disposition: 09 ADMITTED INPATIENT Is pt being admited?: Yes Condition: Stable Instructions: Bacterial Pneumonia (ED) Referrals: LIZA RUSSELL MD [Primary Care Provider] - 3-5 Days Time of Disposition: 18:21 (Dr Koch/hospialist)
[2022-04-01] MEDS ORDERED: cefTRIAXone/NS 2 GM/100 ML 2 GM/100 ML BAG IV ONE (15:55)
[2022-04-01] MEDS ORDERED: SODIUM CHLORIDE 0.9% 1000 ML IV SOLN IV ONE (15:55)
[2022-04-01] MEDS ORDERED: AZITHROMYCIN/NS 500 MG/250 ML 500 MG/250 ML BAG IV ONE (15:55)
[2022-04-01] MEDS ORDERED: IPRATROPIUM 0.02% NEBU 2.5 ML IH ONE (16:03)
[2022-04-01] MEDS ORDERED: LEVALBUTEROL 0.63 MG/3 ML NEBU IH ONE (16:03)
--- NOTE | 2022-04-01 16:53 | Cat Scan Report ---
CTA CHEST WITH CONTRAST INDICATION / CLINICAL INFORMATION: sob, cough, wt loss, abn cxr x 4 months. TECHNIQUE: Axial CT images were obtained through the chest after injection of IV contrast. 3 plane ID P and/or 3D reconstructions were produced. All CT scans at this location are performed using CT dose reduction for ALARA by means of automated exposure control. COMPARISON: None available. FINDINGS: Central pulmonary arteries are patent without definite filling defect or evidence for PTE. The more p eripheral pulmonary arteries are very difficult to visualize due to motion also contrast in the perip heral aspect of the lungs most significant in right lower lung. There is extensive adenopathy with pa ratracheal hilar adenopathy is seen. Left paratracheal node measures 2.9 cm. Extensive axillary adeno esther is also seen. There is extensive pulmonary opacities with some nodular densities and irregularity throughout the ch est. Greatest opacities with chronic interstitial changes noted as well with fibrosis. No acute bone findings UPPER ABDOMEN: No acute findings. SKELETAL STRUCTURES: No significant osseous abnormality. IMPRESSION: 1. No central PTE is identified. The peripheral pulmonary arteries are very difficult to evaluate due to bolus of contrast and motion throughout the examination. A peripheral PTE cannot be completely ex cluded. 2. Extensive mediastinal paratracheal hilar and axillary adenopathy. Follow-up is recommended. 3. Extensive pulmonary opacities with groundglass densities fibrosis and interstitial nodularity. Mul tiple nodular densities are seen in bilateral lungs. Findings could represent infectious etiology how ever follow-up to exclude malignancy. Signer Name: Meño Dutton MD Signed: 04/01/2022 4:49 PM Workstation Name: [id number]
--- NOTE | 2022-04-01 20:41 | History and Physical Report ---
History of Present Illness Date of examination: 04/01/22 Date of admission: 04/01/2022 Chief complaint: Shortness of breah on minimal exertion Cough productive of sputum History of present illness: 46-year-old non-smoker male with a past medical history of hypertension and anemia presents to the hospital complaining of persistent dyspnea on minimal exertion, cough, and abnormal chest x-ray. Patient was seen here in November for similar symptoms. He was diagnosed with multifocal pneumonia and was discharged on azithromycin. Patient is vaccinated for COVID however, he did not receive the booster. He did obtain a COVID test in November after ED presentation and states it was negative. He has since followed with Dr. Russell as recently as 2 days ago. He reports that his x-ray is unchanged and he has been referred to a patroller. Patient presents today due to his persistent worsening symptoms of cough, fatigue, and a 3 pound weight loss in 3 months. - Past Medical History --Hypertension: Yes --Anemia, sob, PNEUMONIA - Surgical History -- No - Social History Smoking Status: Never Smoker Substance Use Type: Alcohol - Medications Home Medications: Home Medications Medication Instructions Recorded Confirmed Last Taken Type Ketorolac [Toradol] 10 mg PO Q6H PRN #30 tablet 10/19/20 Unknown Rx lisinopriL [Zestril TAB] 20 mg PO QDAY #30 tablet 10/19/20 Unknown Rx methOCARBAMOL [Robaxin TAB] 500 mg PO TID PRN #30 tablet 10/19/20 Unknown Rx Azithromycin [Zithromax Z-ABDIAZIZ] 0 mg PO DAILY #1 pack 11/30/21 Unknown Rx Omeprazole 40 mg PO DAILY #14 cap 11/30/21 Unknown Rx Review of Systems ROS: Stated complaint: SOB Other details as noted in HPI Comment: All other systems reviewed and negative Medications and Allergies Allergies Allergy/AdvReac Type Severity Reaction Status Date / Time No Known Allergies Allergy Verified 11/30/21 09:40 Home Medications Medication Instructions Recorded Confirmed Last Taken Type lisinopriL [Zestril TAB] 20 mg PO QDAY #30 tablet 10/19/20 04/02/22 Unknown Rx Exam - Constitutional Vitals: Temp Pulse Resp BP Pulse Ox 98.0 F 103 H 27 H 113/81 98 04/01/22 15:41 04/01/22 18:01 04/01/22 18:01 04/01/22 18:31 04/01/22 18:31 General appearance: Present: no acute distress, well-nourished - EENT Eyes: Present: PERRL ENT: hearing intact, clear oral mucosa - Neck Neck: Present: supple, normal ROM - Respiratory Respiratory effort: normal Respiratory: bilateral: CTA - Cardiovascular Heart Sounds: Present: S1 & S2. Absent: rub, click - Extremities Extremities: pulses symmetrical, No edema Peripheral Pulses: within normal limits - Abdominal General gastrointestinal: Present: soft, non-tender, non-distended, normal bowel sounds Male genitourinary: Present: normal - Integumentary Integumentary: Present: clear, warm, dry - Musculoskeletal Musculoskeletal: gait normal, strength equal bilaterally - Psychiatric Psychiatric: appropriate mood/affect, intact judgment & insight - Neurologic Neurologic: CNII-XII intact, moves all extremities Results - Labs CBC & Chem 7: 04/01/22 13:39 04/01/22 13:39 Labs: Laboratory Last Values WBC 18.1 K/mm3 (4.5-11.0) H 04/01/22 13:39 RBC 4.38 M/mm3 (3.65-5.03) 04/01/22 13:39 Hgb 8.1 gm/dl (11.8-15.2) L 04/01/22 13:39 Hct 27.7 % (35.5-45.6) L 04/01/22 13:39 MCV 63 fl (84-94) L 04/01/22 13:39 MCH 19 pg (28-32) L 04/01/22 13:39 MCHC 29 % (32-34) L 04/01/22 13:39 RDW 19.8 % (13.2-15.2) H 04/01/22 13:39 Plt Count 739 K/mm3 (140-440) H 04/01/22 13:39 Lymph % (Auto) 10.3 % (13.4-35.0) L 04/01/22 13:39 [place] % (Auto) 3.2 % (0.0-7.3) 04/01/22 13:39 Eos % (Auto) 0.7 % (0.0-4.3) 04/01/22 13:39 Baso % (Auto) 0.3 % (0.0-1.8) 04/01/22 13:39 Lymph # (Auto) 1.9 K/mm3 (1.2-5.4) 04/01/22 13:39 [place] # (Auto) 0.6 K/mm3 (0.0-0.8) 04/01/22 13:39 Eos # (Auto) 0.1 K/mm3 (0.0-0.4) 04/01/22 13:39 Baso # (Auto) 0.1 K/mm3 (0.0-0.1) 04/01/22 13:39 Seg Neutrophils % 85.5 % (40.0-70.0) H 04/01/22 13:39 Seg Neutrophils # 15.5 K/mm3 (1.8-7.7) H 04/01/22 13:39 PT 16.4 Sec. (12.2-14.9) H 04/01/22 13:39 INR 1.18 (0.87-1.13) H 04/01/22 13:39 APTT 44.2 Sec. (24.2-36.6) H 04/01/22 13:39 Sodium 133 mmol/L (137-145) L 04/01/22 13:39 Potassium 4.4 mmol/L (3.6-5.0) 04/01/22 13:39 Chloride 96.7 mmol/L (98-107) L 04/01/22 13:39 Carbon Dioxide 21 mmol/L (22-30) L 04/01/22 13:39 Anion Gap 20 mmol/L 04/01/22 13:39 BUN 13 mg/dL (9-20) 04/01/22 13:39 Creatinine 0.6 mg/dL (0.8-1.3) L 04/01/22 13:39 Estimated GFR > 60 ml/min 04/01/22 13:39 BUN/Creatinine Ratio 22 % 04/01/22 13:39 Glucose 88 mg/dL (75-100) 04/01/22 13:39 Lactic Acid 1.00 mmol/L (0.7-2.0) 04/01/22 16:04 Calcium 8.7 mg/dL (8.4-10.2) 04/01/22 13:39 Total Bilirubin 0.40 mg/dL (0.1-1.2) 04/01/22 13:39 AST 42 units/L (5-40) H 04/01/22 13:39 ALT 26 units/L (7-56) 04/01/22 13:39 Alkaline Phosphatase 51 units/L (35-129) 04/01/22 13:39 Total Protein 7.2 g/dL (6.3-8.2) 04/01/22 13:39 Albumin 3.4 g/dL (3.9-5) L 04/01/22 13:39 Albumin/Globulin Ratio 0.9 % 04/01/22 13:39 Short CBC 04/01/22 Range/Units 13:39 WBC 18.1 H (4.5-11.0) K/mm3 Hgb 8.1 L (11.8-15.2) gm/dl Hct 27.7 L (35.5-45.6) % Plt Count 739 H (140-440) K/mm3 BMP 04/01/22 13:39 Sodium 133 L Potassium 4.4 Chloride 96.7 L Carbon Dioxide 21 L BUN 13 Creatinine 0.6 L Glucose 88 Calcium 8.7 Liver Function 04/01/22 Range/Units 13:39 Total Bilirubin 0.40 (0.1-1.2) mg/dL AST 42 H (5-40) units/L ALT 26 (7-56) units/L Alkaline Phosphatase 51 (35-129) units/L Albumin 3.4 L (3.9-5) g/dL - Imaging and Cardiology Chest x-ray: report reviewed CT scan - chest: report reviewed Imaging and Cardiology: Chest CTA Will hold Xarelto for the peripheral pulmonary arteries are very difficult. Due to involvement throughout the examination and failure to care for PTE cannot be excluded Extensive mediastinal and paratracheal Hilar and axillary adenopathy. Follow- up is recommended. Extensive pulmonary opacities with groundglass densities fibrosis and interstitial nodularity. Multiple nodular densities are seen in bilateral Findings could represent infectious follow-up follow-up to exclude. Assessment and Plan Advance Directives: Yes (Full code) VTE prophylaxis?: Chemical Plan of care discussed with patient/family: Yes - Patient Problems (1) Acute respiratory failure with hypoxia Current Visit: Yes Status: Acute Plan to address problem: Sats below 90 on minimal exertion Oxygen supplementation (2) Sepsis Current Visit: Yes Status: Acute Plan to address problem: High White count IV Zithromax and IV Rocephin (3) Bilateral pneumonia Current Visit: Yes Status: Acute Plan to address problem: Unlikely Clinical picture consistent with ILD and Bronchiectasis May need Bronchoscopy for diagnosis and biopsy (4) Interstitial lung disease Current Visit: Yes Status: Chronic Plan to address problem: Possible ILD Defer to pulmonary On IV steroids (5) Bronchiectasis Current Visit: Yes Status: Chronic Qualifiers: Bronchiectasis type: with acute exacerbation Qualified Code(s): J47.1 - Bronchiectasis with (acute) exacerbation Plan to address problem: Patient has Bronchiectaic changes post covid Abx for now. 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 Bronchodilators needs f/u with pumonary on a regular basis (7) HTN (hypertension) Current Visit: Yes Status: Chronic Qualifiers: Hypertension type: primary hypertension Qualified Code(s): I10 - Essential (primary) hypertension Plan to address problem: Cont Lisinopril and adjust medications (8) Anemia Current Visit: Yes Status: Chronic Qualifiers: Anemia type: unspecified type Qualified Code(s): D64.9 - Anemia, unspecified Plan to address problem: Anemia work up Iron studies and folic acid and B12 levels (9) DVT prophylaxis Current Visit: Yes Status: Acute Plan to address problem: On anticoagulation and GI propylaxis (10) Advance care planning Current Visit: Yes Status: Acute Plan to address problem: Disease education conducted,care plan discussed diagnosis discussed ,pognosis discussed. patient is full code.patient acknowledges understanding and agreementwith care plan.plus 30 minutes
[2022-04-01] MEDS ORDERED: ONDANSETRON 4 MG/2 ML INJ IV PRN (20:43)
[2022-04-01] MEDS ORDERED: SODIUM CHLORIDE 0.9% 1000 ML 1,000 ML IV SCH (20:45)
[2022-04-01] MEDS ORDERED: oxyCODONE /ACETAMINOPHEN 5-325MG TAB PO PRN (20:48)
[2022-04-01] MEDS ORDERED: MORPHINE 2 MG/1 ML INJ IV PRN (20:48)
[2022-04-01] MEDS ORDERED: METOCLOPRAMIDE 10 MG/2 ML INJ IV PRN (20:48)
[2022-04-01] MEDS ORDERED: IPRATROPIUM/ALBUTEROL SULFATE 3 ML AMPUL.NEB IH PRN (20:51)
[2022-04-01] MEDS ORDERED: ALBUTEROL 2.5 MG/3 ML NEBU IH PRN (20:57)
[2022-04-01] MEDS ORDERED: HEPARIN 5,000 UNIT/1 ML VIAL SUB-Q SCH (22:00)
[2022-04-01] MEDS: LISINOPRIL 20 MG TAB PO SCH (23:17)
[2022-04-01] MEDS: methylPREDNISolone Sod Succinate 125 MG/2 ML INJ IV SCH (23:23)
[2022-04-02] MEDS ORDERED: guaiFENesin 200 MG TAB PO PRN (00:25)
[2022-04-02] MEDS: guaiFENesin 100 MG/5 ML ORAL LIQD PO PRN ×2 (02:36→21:37)
[2022-04-02] MEDS: PHENOL 1.4% 177 ML BOTTLE MM PRN (02:36)
[2022-04-02] MEDS: methylPREDNISolone Sod Succinate 125 MG/2 ML INJ IV SCH (05:55)
[2022-04-02 07:52] LABS: Hemoglobin 7.7 gm/dl (11.8-15.2); Mean Corpuscular HGB Conc 32 % (32-34); Platelet Count 690 K/mm3 (140-440); Red Blood Count 3.86 M/mm3 (3.65-5.03); Red Cell Distribution Width 19.7 % (13.2-15.2)
[2022-04-02] MEDS: IPRATROPIUM/ALBUTEROL SULFATE 3 ML AMPUL.NEB IH SCH ×3 (07:54→20:30)
[2022-04-02 08:01] LABS: Mean Corpuscular Volume 62 fl (84-94)
[2022-04-02 08:15] LABS: Alanine Aminotransferase 24 units/L (7-56); Albumin 2.9 g/dL (3.9-5); Blood Urea Nitrogen 16 mg/dL (9-20); Calcium 8.5 mg/dL (8.4-10.2); Hemolysis Index 0
[2022-04-02 08:16] LABS: Iron 11 ug/dL (49-181); Total Iron Binding Capacity 144 mcg/dL (250-450)
[2022-04-02 08:19] LABS: BUN/Creatinine Ratio 32
[2022-04-02 09:04] LABS: Band Neutrophils # (Manual) 0.2 K/mm3; Basophils % (Manual) 0 % (0.0-1.8); Eosinophils % (Manual) 0 % (0.0-4.3); Monocytes % (Manual) 0 % (0.0-7.3); Total Cells Counted 100
[2022-04-02 09:05] LABS: Anisocytosis 1+; Hypochromasia 2+; Platelet Estimate Consistent w Auto
--- NOTE | 2022-04-02 09:15 | Electrocardiograph Report ---
[facility] Test Date: 2022-04-01 Test Time: 13:37:09 Pat Name: ROSMERY SHIRLEY Department: Room: A353 Gender: M Hitting Coach: NOREEN : 1975 Requested By: ED DOC Order Number: [id number] Reading MD: Steven Valdez Measurements Intervals [place] Rate: 113 P: 52 DC: 152 QRS: 21 QRSD: 73 T: 51 QT: 322 QTc: 441 Interpretive Statements Sinus tachycardia No previous ECG available for comparison Electronically Signed On 04-02-2022 9:15:13 EDT by Steven Valdez
--- NOTE | 2022-04-02 09:24 | Electrocardiograph Report ---
[facility] Test Date: 2022-04-02 Test Time: 07:50:39 Pat Name: ROSMERY SHIRLEY Department: Room: A353 1 Gender: M Final Assembly Inspector: YOAN : 1975 Requested By: CHIP FRY Order Number: [id number] Reading MD: Steven Valdez Measurements Intervals [place] Rate: 80 P: 45 [place]: 170 QRS: -13 QRSD: 77 T: 25 QT: 382 QTc: 439 Interpretive Statements Sinus rhythm Compared to ECG 04/01/2022 13:37:09 Sinus tachycardia no longer present Electronically Signed On 04-02-2022 9:23:35 EDT by Steven aVldez
[2022-04-02] MEDS: PANTOPRAZOLE 40 MG TAB PO SCH (09:59)
[2022-04-02] MEDS: LISINOPRIL 20 MG TAB PO SCH (09:59)
[2022-04-02] MEDS ORDERED: NON-FORMULARY EACH (Omeprazole [Omeprazole] 40 MG Capsule.Dr) PO SCH (10:00)
--- NOTE | 2022-04-02 10:45 | Consultation ---
History of Present Illness Reason for consult: dyspnea History of present illness: 46-year-old non-smoker male with a past medical history of hypertension and anemia presents to the hospital complaining of persistent dyspnea on minimal exertion, cough, and abnormal chest x-ray. Patient was seen here in November for similar symptoms. He was diagnosed with multifocal pneumonia and was discharged on azithromycin. Patient is vaccinated for COVID however, he did not receive the booster. He did obtain a COVID test in November after ED presentation and states it was negative. Patient has conflicting information he was telling me that his COVID was positive he had pneumonia in November 2021 and since then he has been short of breath he has since followed with Dr. Russell as recently as 2 days ago. He reports that his x-ray is unchanged and he has been referred to a backup sawyer. Patient presents today due to his persistent worsening symptoms of cough, fatigue, and a 30 pound weight loss in 3 months. Patient denied any history of smoking drinking or substance abuse. He does have some night sweats and has lost 20 to 30 pounds in last few months. Cough is productive of clear sputum no hemoptysis. He denied any fever or chills. Past History Past Medical History: hypertension Medications and Allergies Allergies Allergy/AdvReac Type Severity Reaction Status Date / Time No Known Allergies Allergy Verified 11/30/21 09:40 Home Medications Medication Instructions Recorded Confirmed Last Taken Type lisinopriL [Zestril TAB] 20 mg PO QDAY #30 tablet 10/19/20 04/02/22 Unknown Rx Active Meds: Active Medications Acetaminophen (Acetaminophen 325 Mg Tab) 650 mg PO Q4H PRN PRN Reason: Pain MILD(1-3)/Fever >100.5/BOWEN Albuterol (Albuterol 2.5 Mg/3 Ml Nebu) 2.5 mg IH Q3HRT PRN PRN Reason: Wheezing Albuterol/Ipratropium (Ipratropium/Albuterol Sulfate 3 Ml Ampul.Neb) 1 ampul IH QIDRT GOGO Last Admin: 04/02/22 07:54 Dose: 1 ampul Azithromycin (Azithromycin 250 Mg Tab) 500 mg PO QPM GOGO Stop: 04/05/22 18:01 Guaifenesin (Guaifenesin 100 Mg/5 Ml Oral Liqd) 200 mg PO Q6HR PRN PRN Reason: Cough Last Admin: 04/02/22 02:36 Dose: 200 mg Heparin Sodium (Porcine) (Heparin 5,000 Unit/1 Ml Vial) 5,000 unit SUB-Q Q12HR [facility] Last Admin: 04/01/22 23:23 Dose: 5,000 unit Ceftriaxone Sodium (Rocephin/Ns 2 Gm/100 Ml) 2 gm in 100 mls @ 200 mls/hr IV Q24H [facility]; Protocol Stop: 04/05/22 23:59 Lisinopril (Lisinopril 20 Mg Tab) 20 mg PO QDAY [facility] Last Admin: 04/02/22 09:59 Dose: 20 mg Methocarbamol (Methocarbamol 500 Mg Tab) 500 mg PO TID PRN PRN Reason: Muscle Spasm Methylprednisolone Sodium Succinate (Methylprednisolone Sod Succinate 125 Mg/2 Ml Inj) 60 mg IV Q8HR [facility] Last Admin: 04/02/22 05:55 Dose: 60 mg Metoclopramide HCl (Metoclopramide 10 Mg/2 Ml Inj) 10 mg IV Q6H PRN PRN Reason: Nausea And Vomiting Morphine Sulfate (Morphine 2 Mg/1 Ml Inj) 2 mg IV Q4H PRN PRN Reason: Pain, Moderate (4-6) Ondansetron HCl (Ondansetron 4 Mg/2 Ml Inj) 4 mg IV Q8H PRN PRN Reason: Nausea And Vomiting Oxycodone/Acetaminophen (Oxycodone /Acetaminophen 5-325mg Tab) 1 tab PO Q6H PRN PRN Reason: Pain, Moderate (4-6) Pantoprazole Sodium (Pantoprazole 40 Mg Tab) 40 mg PO QDAC [facility] Last Admin: 04/02/22 09:59 Dose: 40 mg Phenol (Phenol 1.4% 177 Ml Bottle) 1 spray MM BID PRN PRN Reason: Sore Throat Last Admin: 04/02/22 02:36 Dose: 1 spray Sodium Chloride (Sodium Chloride 0.9% 10 Ml Flush Syringe) 10 ml IV BID [facility] Last Admin: 04/01/22 23:23 Dose: 10 ml Sodium Chloride (Sodium Chloride 0.9% 10 Ml Flush Syringe) 10 ml IV PRN PRN PRN Reason: LINE FLUSH Review of Systems All systems: negative Constitutional: weight loss Cardiovascular: shortness of breath, dyspnea on exertion Respiratory: cough, cough with sputum, shortness of breath, dyspnea on exertion Physical Examination Vital signs: Vital Signs Pulse Resp Pulse Ox 106 H 42 H 100 04/01/22 15:40 04/01/22 15:40 04/01/22 15:40 General appearance: no acute distress Eyes: non-icteric ENT: oropharynx moist Neck: supple, no lymphadenopathy, no JVD Effort: normal Ascultation: Bilateral: rhonchi Cardiovascular: regular rate and rhythm Gastrointestinal: normoactive bowel sounds, soft, non-tender Extremities: no cyanosis, no edema, pink and warm, other (Clubbing of the fingernails noted) Musculoskeletal: no deformities normal mental status mood appropriate Results - Laboratory Findings CBC and BMP: 04/02/22 06:32 04/02/22 06:32 PT/INR, D-dimer PT 16.4 Sec. (12.2-14.9) H 04/01/22 13:39 INR 1.18 (0.87-1.13) H 04/01/22 13:39 Abnormal lab findings: Abnormal Labs 04/01/22 04/01/22 04/01/22 13:39 13:39 13:39 WBC 18.1 H Hgb 8.1 L Hct 27.7 L MCV 63 L MCH 19 L MCHC 29 L RDW 19.8 H Plt Count 739 H Lymph % (Auto) 10.3 L Seg Neutrophils % 85.5 H Seg Neuts % (Manual) Lymphocytes % (Manual) Seg Neutrophils # 15.5 H Seg Neutrophils # Man Lymphocytes # (Manual) PT 16.4 H INR 1.18 H APTT 44.2 H Sodium 133 L Potassium Chloride 96.7 L Carbon Dioxide 21 L Creatinine 0.6 L Glucose Iron TIBC AST 42 H Albumin 3.4 L 04/02/22 04/02/22 04/02/22 06:32 06:32 06:32 WBC 16.7 H Hgb 7.7 L Hct 24.0 L MCV 62 L MCH 20 L MCHC RDW 19.7 H Plt Count 690 H Lymph % (Auto) Seg Neutrophils % Seg Neuts % (Manual) 95.0 H Lymphocytes % (Manual) 4.0 L Seg Neutrophils # Seg Neutrophils # Man 15.9 H Lymphocytes # (Manual) 0.7 L PT INR APTT Sodium 135 L Potassium 5.4 H D Chloride Carbon Dioxide Creatinine 0.5 L Glucose 120 H Iron 11 L TIBC 144 L AST Albumin 2.9 L - Diagnostic Findings Chest x-ray: image reviewed (Extensive bilateral lower lobe infiltrate) CT scan - chest: image reviewed (Mediastinal lymphadenopathy with diffuse interstitial alveolar groundglass opacity bilaterally more distributed in the lower lobes and peripherally.) Assessment and Plan Impression: Bilateral interstitial lung disease inflammatory versus infectious. Mediastinal adenopathy related to above Dyspnea related to above History of hypertension Recommendation: Sputum for gram stain and C&S and AFB smear and culture Check for markers of inflammation such as CRP Basic check for collagen vascular disorder and sarcoidosis Continue with antibiotic therapy Consider stopping steroids it may affect the work-up and the results of the testing Suspect patient may eventually require a biopsy procedure
--- NOTE | 2022-04-02 10:58 | Progress Note ---
Assessment and Plan Assessment and plan: 46-year-old non-smoker male with a past medical history of hypertension and anemia presents to the hospital complaining of persistent dyspnea on minimal exertion, cough, and abnormal chest x-ray. Patient was seen here in November for similar symptoms. He was diagnosed with multifocal pneumonia and was discharged on azithromycin. Patient is vaccinated for COVID however, he did not receive the booster. He did obtain a COVID test in November after ED presentation and states it was negative. He has since followed with Dr. Russell as recently as 2 days ago. He reports that his x-ray is unchanged and he has been referred to a hydrochloric area supervisor. Patient presents today due to his persistent worsening symptoms of cough, fatigue, and a 3 pound weight loss in 3 months. Chest x-ray: image reviewed (Extensive bilateral lower lobe infiltrate) CT scan - chest: image reviewed (Mediastinal lymphadenopathy with diffuse interstitial alveolar groundglass opacity bilaterally more distributed in the lower lobes and peripherally.) #Acute hypoxic respiratory failure #Sepsis secondary to possible gram-negative bill pneumonia #Bilateral interstitial lung disease inflammatory versus infectious. #Mediastinal adenopathy related to above #Post COVID fatigue syndrome #Possible bronchiectasis secondary to post-COVID #Anemia likely of chronic disorder #Hypertension #Tobacco abuse #Thrombocytosis Plan -Discussed with pulmonology agree with current work-up which include: Sputum for gram stain and C&S and AFB smear and culture, Check for markers of inflammation such as CRP, Basic check for collagen vascular disorder and sarcoidosis and possible bronchoscopy for biopsy -Continue with antibiotic therapy -Doubt that the patient has any reactive airway disease as a result we will steroids it may affect the work-up and the results of the testing -If no clinical improvement will obtain ID consultation -Continue nebulizer as needed - The combination of weight loss, chronic cough, severe anemia, adenopathy and thrombocytosis lead to considering chronic infection, inflammation, malignancy or otherwise -We will check stool for occult blood and if positive will obtain GI evaluation -Extensive counseling on tobacco use cessation presented to the patient he verbalized understanding -DVT and GI prophylaxis we will use SCDs for DVT prophylaxis at this time considering severe anemia - Called and updated the patients brother -35 minutes advance care planning including preventive care discussion. Patient verbalized understanding. History Interval history: Patient seen and examined this morning still with mild shortness of breath. Tachycardia. No chest pain or fever reported at this time. Hospitalist Physical - Physical exam Narrative exam: VITAL SIGNS: Reviewed. GENERAL: The patient appears older than stated age, mild respiratory distress but no increased work of breathing or accessory muscle use vital signs as documented. HEAD: No signs of head trauma. EYES: Pupils are equal. Extraocular motions intact. EARS: Hearing grossly intact. MOUTH: Oropharynx is normal. NECK: No adenopathy, no JVD. CHEST: Chest with diminished breath sounds bilaterally. No wheezes, rales, or rhonchi. CARDIAC: Regular rate and rhythm. S1 and S2, without murmurs, gallops, or rubs. VASCULAR: No Edema. Peripheral pulses normal and equal in all extremities. ABDOMEN: Soft, non tender and non distended. No rebound or guarding, and no masses palpated. Bowel Sounds normal. MUSCULOSKELETAL: Good range of motion of all major joints. Extremities without cyanosis or edema. Clubbing noted bilateral upper extremities NEUROLOGIC EXAM: Alert and oriented x 3 No focal sensory or strength deficits. Speech normal. Follows commands. PSYCHIATRIC: Mood normal. SKIN: detail exam as documented in skin assessment - Constitutional Vitals: Temp Pulse Resp BP Pulse Ox 97.5 F L 89 16 103/72 100 04/02/22 04:19 04/02/22 04:19 04/02/22 04:19 04/02/22 04:19 04/02/22 04:19 General appearance: Present: no acute distress, well-nourished Results - Labs CBC & Chem 7: 04/02/22 06:32 04/02/22 06:32 Labs: Laboratory Last Values WBC 16.7 K/mm3 (4.5-11.0) H 04/02/22 06:32 RBC 3.86 M/mm3 (3.65-5.03) 04/02/22 06:32 Hgb 7.7 gm/dl (11.8-15.2) L 04/02/22 06:32 Hct 24.0 % (35.5-45.6) L 04/02/22 06:32 MCV 62 fl (84-94) L 04/02/22 06:32 MCH 20 pg (28-32) L 04/02/22 06:32 MCHC 32 % (32-34) 04/02/22 06:32 RDW 19.7 % (13.2-15.2) H 04/02/22 06:32 Plt Count 690 K/mm3 (140-440) H 04/02/22 06:32 Lymph % (Auto) 10.3 % (13.4-35.0) L 04/01/22 13:39 [place] % (Auto) 3.2 % (0.0-7.3) 04/01/22 13:39 Eos % (Auto) 0.7 % (0.0-4.3) 04/01/22 13:39 Baso % (Auto) 0.3 % (0.0-1.8) 04/01/22 13:39 Lymph # (Auto) 1.9 K/mm3 (1.2-5.4) 04/01/22 13:39 [place] # (Auto) 0.6 K/mm3 (0.0-0.8) 04/01/22 13:39 Eos # (Auto) 0.1 K/mm3 (0.0-0.4) 04/01/22 13:39 Baso # (Auto) 0.1 K/mm3 (0.0-0.1) 04/01/22 13:39 Add Manual Diff Complete 04/02/22 06:32 Total Counted 100 04/02/22 06:32 Seg Neutrophils % Stucco Applicator 04/02/22 06:32 Seg Neuts % (Manual) 95.0 % (40.0-70.0) H 04/02/22 06:32 Band Neutrophils % 1.0 % 04/02/22 06:32 Lymphocytes % (Manual) 4.0 % (13.4-35.0) L 04/02/22 06:32 Reactive Lymphs % (Man) 0 % 04/02/22 06:32 Monocytes % (Manual) 0 % (0.0-7.3) 04/02/22 06:32 Eosinophils % (Manual) 0 % (0.0-4.3) 04/02/22 06:32 Basophils % (Manual) 0 % (0.0-1.8) 04/02/22 06:32 Metamyelocytes % 0 % 04/02/22 06:32 Myelocytes % 0 % 04/02/22 06:32 Promyelocytes % 0 % 04/02/22 06:32 Blast Cells % 0 % 04/02/22 06:32 Nucleated RBC % Not Reportable 04/02/22 06:32 Seg Neutrophils # 15.5 K/mm3 (1.8-7.7) H 04/01/22 13:39 Seg Neutrophils # Man 15.9 K/mm3 (1.8-7.7) H 04/02/22 06:32 Band Neutrophils # 0.2 K/mm3 04/02/22 06:32 Lymphocytes # (Manual) 0.7 K/mm3 (1.2-5.4) L 04/02/22 06:32 Abs React Lymphs (Man) 0.0 K/mm3 04/02/22 06:32 Monocytes # (Manual) 0.0 K/mm3 (0.0-0.8) 04/02/22 06:32 Eosinophils # (Manual) 0.0 K/mm3 (0.0-0.4) 04/02/22 06:32 Basophils # (Manual) 0.0 K/mm3 (0.0-0.1) 04/02/22 06:32 Metamyelocytes # 0.0 K/mm3 04/02/22 06:32 Myelocytes # 0.0 K/mm3 04/02/22 06:32 Promyelocytes # 0.0 K/mm3 04/02/22 06:32 Blast Cells # 0.0 K/mm3 04/02/22 06:32 WBC Morphology Not Reportable 04/02/22 06:32 Hypersegmented Neuts Not Reportable 04/02/22 06:32 Hyposegmented Neuts Not Reportable 04/02/22 06:32 Hypogranular Neuts Not Reportable 04/02/22 06:32 Smudge Cells Not Reportable 04/02/22 06:32 Toxic Granulation Not Reportable 04/02/22 06:32 Toxic Vacuolation Not Reportable 04/02/22 06:32 Dohle Bodies Not Reportable 04/02/22 06:32 Pelger-Huet Anomaly Not Reportable 04/02/22 06:32 Zach Rods Not Reportable 04/02/22 06:32 Platelet Estimate Consistent w auto 04/02/22 06:32 Clumped Platelets Not Reportable 04/02/22 06:32 Plt Clumps, EDTA Not Reportable 04/02/22 06:32 Large Platelets Not Reportable 04/02/22 06:32 Giant Platelets Not Reportable 04/02/22 06:32 Platelet Satelliting Not Reportable 04/02/22 06:32 Plt Morphology Comment Not Reportable 04/02/22 06:32 RBC Morphology Not Reportable 04/02/22 06:32 Dimorphic RBCs Not Reportable 04/02/22 06:32 Polychromasia Not Reportable 04/02/22 06:32 Hypochromasia 2+ 04/02/22 06:32 Poikilocytosis Not Reportable 04/02/22 06:32 Anisocytosis 1+ 04/02/22 06:32 Microcytosis 2+ 04/02/22 06:32 Macrocytosis Not Reportable 04/02/22 06:32 Spherocytes Not Reportable 04/02/22 06:32 Pappenheimer Bodies Not Reportable 04/02/22 06:32 Sickle Cells Not Reportable 04/02/22 06:32 Target Cells Not Reportable 04/02/22 06:32 Tear Drop Cells Not Reportable 04/02/22 06:32 Ovalocytes Not Reportable 04/02/22 06:32 Helmet Cells Not Reportable 04/02/22 06:32 Marquis-Dobson Bodies Not Reportable 04/02/22 06:32 [place] Rings Not Reportable 04/02/22 06:32 Hayes Cells Not Reportable 04/02/22 06:32 Bite Cells Not Reportable 04/02/22 06:32 Crenated Cell Not Reportable 04/02/22 06:32 Elliptocytes Not Reportable 04/02/22 06:32 Acanthocytes (Spur) Not Reportable 04/02/22 06:32 Rouleaux Not Reportable 04/02/22 06:32 Hemoglobin C Crystals Not Reportable 04/02/22 06:32 Schistocytes Not Reportable 04/02/22 06:32 Malaria parasites Not Reportable 04/02/22 06:32 Maxim Bodies Not Reportable 04/02/22 06:32 Hem Pathologist Commnt No 04/02/22 06:32 PT 16.4 Sec. (12.2-14.9) H 04/01/22 13:39 INR 1.18 (0.87-1.13) H 04/01/22 13:39 APTT 44.2 Sec. (24.2-36.6) H 04/01/22 13:39 Sodium 135 mmol/L (137-145) L 04/02/22 06:32 Potassium 5.4 mmol/L (3.6-5.0) H D 04/02/22 06:32 Chloride 101.9 mmol/L (98-107) 04/02/22 06:32 Carbon Dioxide 22 mmol/L (22-30) 04/02/22 06:32 Anion Gap 17 mmol/L 04/02/22 06:32 BUN 16 mg/dL (9-20) 04/02/22 06:32 Creatinine 0.5 mg/dL (0.8-1.3) L 04/02/22 06:32 Estimated GFR > 60 ml/min 04/02/22 06:32 BUN/Creatinine Ratio 32 % 04/02/22 06:32 Glucose 120 mg/dL (75-100) H 04/02/22 06:32 Lactic Acid 1.00 mmol/L (0.7-2.0) 04/01/22 16:04 Calcium 8.5 mg/dL (8.4-10.2) 04/02/22 06:32 Iron 11 ug/dL (49-181) L 04/02/22 06:32 TIBC 144 mcg/dL (250-450) L 04/02/22 06:32 Total Bilirubin < 0.20 mg/dL (0.1-1.2) 04/02/22 06:32 AST 30 units/L (5-40) 04/02/22 06:32 ALT 24 units/L (7-56) 04/02/22 06:32 Alkaline Phosphatase 49 units/L (35-129) 04/02/22 06:32 Total Protein 6.7 g/dL (6.3-8.2) 04/02/22 06:32 Albumin 2.9 g/dL (3.9-5) L 04/02/22 06:32 Albumin/Globulin Ratio 0.8 % 04/02/22 06:32 Procalcitonin 0.42 ng/mL (<0.15) 04/01/22 13:39 Microbiology: Microbiology 04/01/22 16:04 Peripheral/Venous Blood Culture - Preliminary Culture in Progress 04/01/22 16:04 Peripheral/Venous Blood Culture - Preliminary Culture in Progress Pruett/IV: Voiding Method Toilet Active Medications - Current Medications Current Medications: Generic Name Dose Route Start Last Admin Trade Name Freq PRN Reason Stop Dose Admin Acetaminophen 650 mg 04/01/22 20:43 Acetaminophen 325 Mg Tab PO Q4H PRN Pain MILD(1-3)/Fever >100.5/BOWEN Albuterol 2.5 mg 04/01/22 20:57 Albuterol 2.5 Mg/3 Ml Nebu IH Q3HRT PRN Wheezing Albuterol/Ipratropium 1 ampul 04/02/22 08:00 04/02/22 07:54 Ipratropium/Albuterol Sulfate 3 Ml Ampul.Neb IH 1 ampul QIDRT GOGO Administration Azithromycin 500 mg 04/02/22 18:00 Azithromycin 250 Mg Tab PO 04/05/22 18:01 QPM GOGO Guaifenesin 200 mg 04/02/22 00:43 04/02/22 02:36 Guaifenesin 100 Mg/5 Ml Oral Liqd PO 200 mg Q6HR PRN Administration Cough Heparin Sodium (Porcine) 5,000 unit 04/01/22 22:00 04/01/22 23:23 Heparin 5,000 Unit/1 Ml Vial SUB-Q 5,000 unit Q12HR GOGO Administration Ceftriaxone Sodium 2 gm in 100 mls @ 200 mls/hr 04/02/22 17:00 Rocephin/Ns 2 Gm/100 Ml IV 04/05/22 23:59 Q24H [facility] Protocol Lisinopril 20 mg 04/01/22 21:00 04/02/22 09:59 Lisinopril 20 Mg Tab PO 20 mg QDAY GOGO Administration Methocarbamol 500 mg 04/01/22 20:41 Methocarbamol 500 Mg Tab PO TID PRN Muscle Spasm Metoclopramide HCl 10 mg 04/01/22 20:48 Metoclopramide 10 Mg/2 Ml Inj IV Q6H PRN Nausea And Vomiting Morphine Sulfate 2 mg 04/01/22 20:48 Morphine 2 Mg/1 Ml Inj IV Q4H PRN Pain, Moderate (4-6) Ondansetron HCl 4 mg 04/01/22 20:43 Ondansetron 4 Mg/2 Ml Inj IV Q8H PRN Nausea And Vomiting Oxycodone/Acetaminophen 1 tab 04/01/22 20:48 Oxycodone /Acetaminophen 5-325mg Tab PO Q6H PRN Pain, Moderate (4-6) Pantoprazole Sodium 40 mg 04/02/22 07:30 04/02/22 09:59 Pantoprazole 40 Mg Tab PO 40 mg QDAC GOGO Administration Phenol 1 spray 04/02/22 00:17 04/02/22 02:36 Phenol 1.4% 177 Ml Bottle MM 1 spray BID PRN Administration Sore Throat Sodium Chloride 10 ml 04/01/22 22:00 04/01/22 23:23 Sodium Chloride 0.9% 10 Ml Flush Syringe IV 10 ml BID GOGO Administration Sodium Chloride 10 ml 04/01/22 20:43 Sodium Chloride 0.9% 10 Ml Flush Syringe IV PRN PRN LINE FLUSH Sodium Polystyrene Sulfonate 30 gm 04/02/22 10:56 Sodium Polystyrene 15 Gm/60 Ml Oral Liqd PO 04/02/22 10:57 ONCE ONE
[2022-04-02] MEDS ORDERED: SODIUM POLYSTYRENE 15 GM/60 ML ORAL LIQD PO NR ×2 (11:30→23:30)
[2022-04-02 13:10] LABS: C-Reactive Protein 18.1 mg/dL (0.00-1.30)
[2022-04-02] MEDS ORDERED: AZITHROMYCIN/NS 500 MG/250 ML 500 MG/250 ML BAG IV SCH (17:00)
[2022-04-02] MEDS: cefTRIAXone/NS 2 GM/100 ML 2 GM/100 ML BAG IV SCH (19:20)
[2022-04-02] MEDS: AZITHROMYCIN 250 MG TAB PO SCH (19:21)
[2022-04-03] MEDS: SODIUM CHLORIDE 0.9% 1000 ML 1,000 ML IV SCH (04:45)
[2022-04-03 06:55] LABS: Hematocrit 24.3 % (35.5-45.6); Hemoglobin 7.6 gm/dl (11.8-15.2); Mean Corpuscular HGB Conc 31 % (32-34); Platelet Count 724 K/mm3 (140-440); Red Blood Count 3.81 M/mm3 (3.65-5.03); Red Cell Distribution Width 19.9 % (13.2-15.2)
[2022-04-03 07:20] LABS: Blood Urea Nitrogen 21 mg/dL (9-20); Calcium 8.6 mg/dL (8.4-10.2); Hemolysis Index 1
[2022-04-03 07:22] LABS: BUN/Creatinine Ratio 42
[2022-04-03 08:49] LABS: Mean Corpuscular Volume 64 fl (84-94)
[2022-04-03] MEDS: IPRATROPIUM/ALBUTEROL SULFATE 3 ML AMPUL.NEB IH SCH ×3 (10:22→20:51)
--- NOTE | 2022-04-03 11:28 | Progress Note ---
Assessment and Plan Impression: Bilateral interstitial lung disease inflammatory versus infectious. Mediastinal adenopathy related to above Dyspnea related to above History of hypertension Elevated CRP suggest inflammatory process Recommendation: Await sputum collection for gram stain and C&S and AFB smear and culture Basic check for collagen vascular disorder and sarcoidosis, pending Continue with antibiotic therapy Monitor off steroids Suspect patient may eventually require a biopsy procedure Subjective Date of service: 04/03/22 Interval history: Patient feeling much better. Slept well. Less shortness of breath. Objective Vital Signs - 12hr 04/03/22 04:55 Temperature 98.0 F Pulse Rate 91 H Respiratory 16 Rate Blood Pressure 109/73 O2 Sat by Pulse 97 Oximetry Constitutional: no acute distress Eyes: non-icteric ENT: oropharynx moist Neck: supple, no lymphadenopathy, no JVD Effort: normal Ascultation: Bilateral: rhonchi Cardiovascular: regular rate and rhythm Gastrointestinal: normoactive bowel sounds, soft, non-tender Extremities: no cyanosis, no edema, pink and warm, other (Clubbing of the fingernails noted) Neurologic: normal mental status Psychiatric: mood appropriate CBC and BMP: 04/03/22 06:03 04/03/22 06:03 ABG, PT/INR, D-dimer: PT/INR, D-dimer PT 16.4 Sec. (12.2-14.9) H 04/01/22 13:39 INR 1.18 (0.87-1.13) H 04/01/22 13:39 Abnormal lab findings: Abnormal Labs 04/01/22 04/01/22 04/01/22 13:39 13:39 13:39 WBC 18.1 H Hgb 8.1 L Hct 27.7 L MCV 63 L MCH 19 L MCHC 29 L RDW 19.8 H Plt Count 739 H Lymph % (Auto) 10.3 L Seg Neutrophils % 85.5 H Seg Neuts % (Manual) Lymphocytes % (Manual) Seg Neutrophils # 15.5 H Seg Neutrophils # Man Lymphocytes # (Manual) PT 16.4 H INR 1.18 H APTT 44.2 H Sodium 133 L Potassium Chloride 96.7 L Carbon Dioxide 21 L BUN Creatinine 0.6 L Glucose Iron TIBC Ferritin AST 42 H Lactate Dehydrogenase C-Reactive Protein Albumin 3.4 L Rheumatoid Factor 04/02/22 04/02/22 04/02/22 06:32 06:32 06:32 WBC 16.7 H Hgb 7.7 L Hct 24.0 L MCV 62 L MCH 20 L MCHC RDW 19.7 H Plt Count 690 H Lymph % (Auto) Seg Neutrophils % Seg Neuts % (Manual) 95.0 H Lymphocytes % (Manual) 4.0 L Seg Neutrophils # Seg Neutrophils # Man 15.9 H Lymphocytes # (Manual) 0.7 L PT INR APTT Sodium 135 L Potassium 5.4 H D Chloride Carbon Dioxide BUN Creatinine 0.5 L Glucose 120 H Iron 11 L TIBC 144 L Ferritin AST Lactate Dehydrogenase C-Reactive Protein Albumin 2.9 L Rheumatoid Factor 04/02/22 04/02/22 04/02/22 06:32 06:32 06:32 WBC Hgb Hct MCV MCH MCHC RDW Plt Count Lymph % (Auto) Seg Neutrophils % Seg Neuts % (Manual) Lymphocytes % (Manual) Seg Neutrophils # Seg Neutrophils # Man Lymphocytes # (Manual) PT INR APTT Sodium Potassium Chloride Carbon Dioxide BUN Creatinine Glucose Iron TIBC Ferritin 2290.0 H AST Lactate Dehydrogenase 328 H C-Reactive Protein 18.10 H Albumin Rheumatoid Factor 21 H 04/03/22 04/03/22 06:03 06:03 WBC 19.5 H Hgb 7.6 L Hct 24.3 L MCV 64 L MCH 20 L MCHC 31 L RDW 19.9 H Plt Count 724 H Lymph % (Auto) Seg Neutrophils % Seg Neuts % (Manual) Lymphocytes % (Manual) Seg Neutrophils # Seg Neutrophils # Man Lymphocytes # (Manual) PT INR APTT Sodium Potassium Chloride 107.2 H Carbon Dioxide 21 L BUN 21 H Creatinine 0.5 L Glucose 122 H Iron TIBC Ferritin AST Lactate Dehydrogenase C-Reactive Protein Albumin Rheumatoid Factor
--- NOTE | 2022-04-03 11:56 | Progress Note ---
Assessment and Plan Assessment and plan: 46-year-old non-smoker male with a past medical history of hypertension and anemia presents to the hospital complaining of persistent dyspnea on minimal exertion, cough, and abnormal chest x-ray. Patient was seen here in November for similar symptoms. He was diagnosed with multifocal pneumonia and was discharged on azithromycin. Patient is vaccinated for COVID however, he did not receive the booster. He did obtain a COVID test in November after ED presentation and states it was negative. He has since followed with Dr. Russell as recently as 2 days ago. He reports that his x-ray is unchanged and he has been referred to a field contact person. Patient presents today due to his persistent worsening symptoms of cough, fatigue, and a 3 pound weight loss in 3 months. Chest x-ray: image reviewed (Extensive bilateral lower lobe infiltrate) CT scan - chest: image reviewed (Mediastinal lymphadenopathy with diffuse interstitial alveolar groundglass opacity bilaterally more distributed in the lower lobes and peripherally.) #Acute hypoxic respiratory failure #Sepsis secondary to possible gram-negative bill pneumonia #Bilateral interstitial lung disease inflammatory versus infectious. #Mediastinal adenopathy related to above #Post COVID fatigue syndrome #Possible bronchiectasis secondary to post-COVID #Anemia likely of chronic disorder #Hypertension #Tobacco abuse #Thrombocytosis Plan -04/03: Work-up still ongoing AFB smear and culture were not collected I discussed with nursing staff to obtain this. This can be followed outpatient as we do not believe the patient has active tuberculosis at this time. I am also obtaining a home O2 evaluation and treat. Based on this result and if patient's leukocytosis begins to trend downwards patient can be discharged in a.m. Leukocytosis is the reason why we are keeping the patient an additional day we will continue antibiotics. He is not on steroids and as a result I expect that the leukocytosis will be trending down. He has an elevated CRP which favors infection versus inflammation we will continue to monitor closely. Discussed with pulmonology agree with current work-up which include: Sputum for gram stain and C&S and AFB smear and culture, Check for markers of inflammation such as CRP, Basic check for collagen vascular disorder and sarcoidosis and possible bronchoscopy for biopsy -Continue with antibiotic therapy -Doubt that the patient has any reactive airway disease as a result we will steroids it may affect the work-up and the results of the testing -If no clinical improvement will obtain ID consultation -Continue nebulizer as needed - The combination of weight loss, chronic cough, severe anemia, adenopathy and thrombocytosis lead to considering chronic infection, inflammation, malignancy or otherwise -We will check stool for occult blood and if positive will obtain GI evaluation -Extensive counseling on tobacco use cessation presented to the patient he norm balized understanding -DVT and GI prophylaxis we will use SCDs for DVT prophylaxis at this time cons idering severe anemia - Called and updated the patients brother -35 minutes advance care planning including preventive care discussion. Patient verbalized understanding. Inpatient Justification * Risk of adverse events associated with worsening signs & symptoms of principle problem and up to . * Worsening leukocytosis without steroids * Risk of adverse events related to severe illness up to and including * Treatment requiring a hospital setting: Worsening leukocytosis without being on steroids and elevated CRP * Current post hospital plan of care: Discharge home History Interval history: Patient seen and examined this morning no acute distress at this time. Was off oxygen at the time I saw HIM no chest pain or fever reported at this time. Hospitalist Physical - Physical exam Narrative exam: VITAL SIGNS: Reviewed. GENERAL: The patient appears older than stated age, no shortness of breath, no increased work of breathing or accessory muscle use vital signs as documented. HEAD: No signs of head trauma. EYES: Pupils are equal. Extraocular motions intact. EARS: Hearing grossly intact. MOUTH: Oropharynx is normal. NECK: No adenopathy, no JVD. CHEST: Chest with diminished breath sounds bilaterally. No wheezes, rales, or rhonchi. CARDIAC: Regular rate and rhythm. S1 and S2, without murmurs, gallops, or rubs. VASCULAR: No Edema. Peripheral pulses normal and equal in all extremities. ABDOMEN: Soft, non tender and non distended. No rebound or guarding, and no masses palpated. Bowel Sounds normal. MUSCULOSKELETAL: Good range of motion of all major joints. Extremities without cyanosis or edema. Clubbing noted bilateral upper extremities NEUROLOGIC EXAM: Alert and oriented x 3 No focal sensory or strength deficits. Speech normal. Follows commands. PSYCHIATRIC: Mood normal. SKIN: detail exam as documented in skin assessment - Constitutional Vitals: Temp Pulse Resp BP Pulse Ox 98.0 F 91 H 16 109/73 97 04/03/22 04:55 04/03/22 04:55 04/03/22 04:55 04/03/22 04:55 04/03/22 04:55 General appearance: Present: no acute distress, well-nourished Results - Labs CBC & Chem 7: 04/03/22 06:03 04/03/22 06:03 Labs: Laboratory Last Values WBC 19.5 K/mm3 (4.5-11.0) H 04/03/22 06:03 RBC 3.81 M/mm3 (3.65-5.03) 04/03/22 06:03 Hgb 7.6 gm/dl (11.8-15.2) L 04/03/22 06:03 Hct 24.3 % (35.5-45.6) L 04/03/22 06:03 MCV 64 fl (84-94) L 04/03/22 06:03 MCH 20 pg (28-32) L 04/03/22 06:03 MCHC 31 % (32-34) L 04/03/22 06:03 RDW 19.9 % (13.2-15.2) H 04/03/22 06:03 Plt Count 724 K/mm3 (140-440) H 04/03/22 06:03 Lymph % (Auto) 10.3 % (13.4-35.0) L 04/01/22 13:39 [place] % (Auto) 3.2 % (0.0-7.3) 04/01/22 13:39 Eos % (Auto) 0.7 % (0.0-4.3) 04/01/22 13:39 Baso % (Auto) 0.3 % (0.0-1.8) 04/01/22 13:39 Lymph # (Auto) 1.9 K/mm3 (1.2-5.4) 04/01/22 13:39 [place] # (Auto) 0.6 K/mm3 (0.0-0.8) 04/01/22 13:39 Eos # (Auto) 0.1 K/mm3 (0.0-0.4) 04/01/22 13:39 Baso # (Auto) 0.1 K/mm3 (0.0-0.1) 04/01/22 13:39 Add Manual Diff Complete 04/02/22 06:32 Total Counted 100 04/02/22 06:32 Seg Neutrophils % Roll Forming Machine Set Up Operator 04/02/22 06:32 Seg Neuts % (Manual) 95.0 % (40.0-70.0) H 04/02/22 06:32 Band Neutrophils % 1.0 % 04/02/22 06:32 Lymphocytes % (Manual) 4.0 % (13.4-35.0) L 04/02/22 06:32 Reactive Lymphs % (Man) 0 % 04/02/22 06:32 Monocytes % (Manual) 0 % (0.0-7.3) 04/02/22 06:32 Eosinophils % (Manual) 0 % (0.0-4.3) 04/02/22 06:32 Basophils % (Manual) 0 % (0.0-1.8) 04/02/22 06:32 Metamyelocytes % 0 % 04/02/22 06:32 Myelocytes % 0 % 04/02/22 06:32 Promyelocytes % 0 % 04/02/22 06:32 Blast Cells % 0 % 04/02/22 06:32 Nucleated RBC % Not Reportable 04/02/22 06:32 Seg Neutrophils # 15.5 K/mm3 (1.8-7.7) H 04/01/22 13:39 Seg Neutrophils # Man 15.9 K/mm3 (1.8-7.7) H 04/02/22 06:32 Band Neutrophils # 0.2 K/mm3 04/02/22 06:32 Lymphocytes # (Manual) 0.7 K/mm3 (1.2-5.4) L 04/02/22 06:32 Abs React Lymphs (Man) 0.0 K/mm3 04/02/22 06:32 Monocytes # (Manual) 0.0 K/mm3 (0.0-0.8) 04/02/22 06:32 Eosinophils # (Manual) 0.0 K/mm3 (0.0-0.4) 04/02/22 06:32 Basophils # (Manual) 0.0 K/mm3 (0.0-0.1) 04/02/22 06:32 Metamyelocytes # 0.0 K/mm3 04/02/22 06:32 Myelocytes # 0.0 K/mm3 04/02/22 06:32 Promyelocytes # 0.0 K/mm3 04/02/22 06:32 Blast Cells # 0.0 K/mm3 04/02/22 06:32 WBC Morphology Not Reportable 04/02/22 06:32 Hypersegmented Neuts Not Reportable 04/02/22 06:32 Hyposegmented Neuts Not Reportable 04/02/22 06:32 Hypogranular Neuts Not Reportable 04/02/22 06:32 Smudge Cells Not Reportable 04/02/22 06:32 Toxic Granulation Not Reportable 04/02/22 06:32 Toxic Vacuolation Not Reportable 04/02/22 06:32 Dohle Bodies Not Reportable 04/02/22 06:32 Pelger-Huet Anomaly Not Reportable 04/02/22 06:32 Zach Rods Not Reportable 04/02/22 06:32 Platelet Estimate Consistent w auto 04/02/22 06:32 Clumped Platelets Not Reportable 04/02/22 06:32 Plt Clumps, EDTA Not Reportable 04/02/22 06:32 Large Platelets Not Reportable 04/02/22 06:32 Giant Platelets Not Reportable 04/02/22 06:32 Platelet Satelliting Not Reportable 04/02/22 06:32 Plt Morphology Comment Not Reportable 04/02/22 06:32 RBC Morphology Not Reportable 04/02/22 06:32 Dimorphic RBCs Not Reportable 04/02/22 06:32 Polychromasia Not Reportable 04/02/22 06:32 Hypochromasia 2+ 04/02/22 06:32 Poikilocytosis Not Reportable 04/02/22 06:32 Anisocytosis 1+ 04/02/22 06:32 Microcytosis 2+ 04/02/22 06:32 Macrocytosis Not Reportable 04/02/22 06:32 Spherocytes Not Reportable 04/02/22 06:32 Pappenheimer Bodies Not Reportable 04/02/22 06:32 Sickle Cells Not Reportable 04/02/22 06:32 Target Cells Not Reportable 04/02/22 06:32 Tear Drop Cells Not Reportable 04/02/22 06:32 Ovalocytes Not Reportable 04/02/22 06:32 Helmet Cells Not Reportable 04/02/22 06:32 [place] Bodies Not Reportable 04/02/22 06:32 [place] Rings Not Reportable 04/02/22 06:32 [place] Cells Not Reportable 04/02/22 06:32 Bite Cells Not Reportable 04/02/22 06:32 Crenated Cell Not Reportable 04/02/22 06:32 Elliptocytes Not Reportable 04/02/22 06:32 Acanthocytes (Spur) Not Reportable 04/02/22 06:32 Rouleaux Not Reportable 04/02/22 06:32 Hemoglobin C Crystals Not Reportable 04/02/22 06:32 Schistocytes Not Reportable 04/02/22 06:32 Malaria parasites Not Reportable 04/02/22 06:32 Maxim Bodies Not Reportable 04/02/22 06:32 Hem Pathologist Commnt No 04/02/22 06:32 PT 16.4 Sec. (12.2-14.9) H 04/01/22 13:39 INR 1.18 (0.87-1.13) H 04/01/22 13:39 APTT 44.2 Sec. (24.2-36.6) H 04/01/22 13:39 Sodium 141 mmol/L (137-145) 04/03/22 06:03 Potassium 4.5 mmol/L (3.6-5.0) 04/03/22 06:03 Chloride 107.2 mmol/L (98-107) H 04/03/22 06:03 Carbon Dioxide 21 mmol/L (22-30) L 04/03/22 06:03 Anion Gap 17 mmol/L 04/03/22 06:03 BUN 21 mg/dL (9-20) H 04/03/22 06:03 Creatinine 0.5 mg/dL (0.8-1.3) L 04/03/22 06:03 Estimated GFR > 60 ml/min 04/03/22 06:03 BUN/Creatinine Ratio 42 % 04/03/22 06:03 Glucose 122 mg/dL (75-100) H 04/03/22 06:03 Lactic Acid 1.00 mmol/L (0.7-2.0) 04/01/22 16:04 Calcium 8.6 mg/dL (8.4-10.2) 04/03/22 06:03 Iron 11 ug/dL (49-181) L 04/02/22 06:32 TIBC 144 mcg/dL (250-450) L 04/02/22 06:32 Ferritin 2290.0 ng/mL (30.0-300.0) H 04/02/22 06:32 Total Bilirubin < 0.20 mg/dL (0.1-1.2) 04/02/22 06:32 AST 30 units/L (5-40) 04/02/22 06:32 ALT 24 units/L (7-56) 04/02/22 06:32 Alkaline Phosphatase 49 units/L (35-129) 04/02/22 06:32 Lactate Dehydrogenase 328 units/L (91-180) H 04/02/22 06:32 C-Reactive Protein 18.10 mg/dL (0.00-1.30) H 04/02/22 06:32 C-Reactive Protein Cancelled 04/02/22 06:32 Total Protein 6.7 g/dL (6.3-8.2) 04/02/22 06:32 Albumin 2.9 g/dL (3.9-5) L 04/02/22 06:32 Albumin/Globulin Ratio 0.8 % 04/02/22 06:32 Procalcitonin 0.42 ng/mL (<0.15) 04/01/22 13:39 Rheumatoid Factor 21 IU/ml (0-13) H 04/02/22 06:32 Coronavirus (PCR) Negative (Negative) 04/02/22 10:05 Microbiology: Microbiology 04/01/22 16:04 Peripheral/Venous Blood Culture - Preliminary NO GROWTH AFTER 24 HOURS 04/01/22 16:04 Peripheral/Venous Blood Culture - Preliminary NO GROWTH AFTER 24 HOURS [place]/IV: Voiding Method Toilet Active Medications - Current Medications Current Medications: Generic Name Dose Route Start Last Admin Trade Name Freq PRN Reason Stop Dose Admin Acetaminophen 650 mg 04/01/22 20:43 Acetaminophen 325 Mg Tab PO Q4H PRN Pain MILD(1-3)/Fever >100.5/BOWEN Albuterol 2.5 mg 04/01/22 20:57 Albuterol 2.5 Mg/3 Ml Nebu IH Q3HRT PRN Wheezing Albuterol/Ipratropium 1 ampul 04/02/22 20:00 04/03/22 10:22 Ipratropium/Albuterol Sulfate 3 Ml Ampul.Neb IH 1 ampul TIDRT GOGO Administration Azithromycin 500 mg 04/02/22 18:00 04/02/22 19:21 Azithromycin 250 Mg Tab PO 04/05/22 18:01 500 mg QPM GOGO Administration Guaifenesin 200 mg 04/02/22 00:43 04/02/22 21:37 Guaifenesin 100 Mg/5 Ml Oral Liqd PO 200 mg Q6HR PRN Administration Cough Ceftriaxone Sodium 2 gm in 100 mls @ 200 mls/hr 04/02/22 17:00 04/02/22 19:20 Rocephin/Ns 2 Gm/100 Ml IV 04/05/22 23:59 200 mls/hr Q24H GOGO Administration Protocol Sodium Chloride 1,000 mls @ 125 mls/hr 04/02/22 11:00 04/03/22 04:45 Nacl 0.9% 1000 Ml IV 125 mls/hr DIRECT GOGO Administration Lisinopril 20 mg 04/01/22 21:00 04/02/22 09:59 Lisinopril 20 Mg Tab PO 20 mg QDAY GOGO Administration Methocarbamol 500 mg 04/01/22 20:41 Methocarbamol 500 Mg Tab PO TID PRN Muscle Spasm Metoclopramide HCl 10 mg 04/01/22 20:48 Metoclopramide 10 Mg/2 Ml Inj IV Q6H PRN Nausea And Vomiting Morphine Sulfate 2 mg 04/01/22 20:48 Morphine 2 Mg/1 Ml Inj IV Q4H PRN Pain, Moderate (4-6) Ondansetron HCl 4 mg 04/01/22 20:43 Ondansetron 4 Mg/2 Ml Inj IV Q8H PRN Nausea And Vomiting Oxycodone/Acetaminophen 1 tab 04/01/22 20:48 Oxycodone /Acetaminophen 5-325mg Tab PO Q6H PRN Pain, Moderate (4-6) Pantoprazole Sodium 40 mg 04/02/22 07:30 04/02/22 09:59 Pantoprazole 40 Mg Tab PO 40 mg QDAC GOGO Administration Phenol 1 spray 04/02/22 00:17 04/02/22 02:36 Phenol 1.4% 177 Ml Bottle MM 1 spray BID PRN Administration Sore Throat Sodium Chloride 10 ml 04/01/22 22:00 04/02/22 21:37 Sodium Chloride 0.9% 10 Ml Flush Syringe IV 10 ml BID GOGO Administration Sodium Chloride 10 ml 04/01/22 20:43 Sodium Chloride 0.9% 10 Ml Flush Syringe IV PRN PRN LINE FLUSH
[2022-04-03] MEDS: LISINOPRIL 20 MG TAB PO SCH (12:06)
[2022-04-03] MEDS: PANTOPRAZOLE 40 MG TAB PO SCH (12:06)
[2022-04-03] MEDS: guaiFENesin 100 MG/5 ML ORAL LIQD PO PRN (12:07)
[2022-04-03] MEDS: AZITHROMYCIN 250 MG TAB PO SCH (19:29)
[2022-04-03] MEDS: cefTRIAXone/NS 2 GM/100 ML 2 GM/100 ML BAG IV SCH (20:31)
[2022-04-03] MEDS: ACETAMINOPHEN 325 MG TAB PO PRN (22:53)
[2022-04-04] MEDS: PANTOPRAZOLE 40 MG TAB PO SCH (07:24)
[2022-04-04] MEDS: SODIUM CHLORIDE 0.9% 1000 ML 1,000 ML IV SCH (07:25)
[2022-04-04] MEDS: PHENOL 1.4% 177 ML BOTTLE MM PRN ×2 (07:27→20:20)
[2022-04-04] MEDS: IPRATROPIUM/ALBUTEROL SULFATE 3 ML AMPUL.NEB IH SCH ×3 (09:30→19:42)
--- NOTE | 2022-04-04 09:52 | Progress Note ---
Assessment and Plan Assessment and plan: 46-year-old non-smoker male with a past medical history of hypertension and anemia presents to the hospital complaining of persistent dyspnea on minimal exertion, cough, and abnormal chest x-ray. Patient was seen here in November for similar symptoms. He was diagnosed with multifocal pneumonia and was discharged on azithromycin. Patient is vaccinated for COVID however, he did not receive the booster. He did obtain a COVID test in November after ED presentation and states it was negative. He has since followed with Dr. Russell as recently as 2 days ago. He reports that his x-ray is unchanged and he has been referred to a rn registry. Patient presents today due to his persistent worsening symptoms of cough, fatigue, and a 3 pound weight loss in 3 months. Chest x-ray: image reviewed (Extensive bilateral lower lobe infiltrate) CT scan - chest: image reviewed (Mediastinal lymphadenopathy with diffuse interstitial alveolar groundglass opacity bilaterally more distributed in the lower lobes and peripherally.) #Acute hypoxic respiratory failure #Sepsis secondary to possible gram-negative bill pneumonia #Bilateral interstitial lung disease inflammatory versus infectious. #Mediastinal adenopathy related to above #Post COVID fatigue syndrome #Possible bronchiectasis secondary to post-COVID #Anemia likely of chronic disorder #Hypertension #Tobacco abuse #Thrombocytosis Hospital course: -04/03: Work-up still ongoing AFB smear and culture were not collected I discussed with nursing staff to obtain this. This can be followed outpatient as we do not believe the patient has active tuberculosis at this time. I am also obtaining a home O2 evaluation and treat. Based on this result and if patient's leukocytosis begins to trend downwards patient can be discharged in a.m. Leukocytosis is the reason why we are keeping the patient an additional day we will continue antibiotics. He is not on steroids and as a result I expect that the leukocytosis will be trending down. He has an elevated CRP which favors infection versus inflammation we will continue to monitor closely. 04/04: Follow-up sputum for gram stain and C&S and AFB smear and culture, Check for markers of inflammation such as CRP, Basic check for collagen vascular disorder and sarcoidosis and possible bronchoscopy for biopsy -Continue with antibiotic therapy -Doubt that the patient has any reactive airway disease as a result we will steroids it may affect the work-up and the results of the testing -We will obtain ID consultation given the worsening leukocytosis -Continue nebulizer as needed - The combination of weight loss, chronic cough, severe anemia, adenopathy and thrombocytosis lead to considering chronic infection, inflammation, malignancy or otherwise -Follow-up stool for occult blood and if positive will obtain GI evaluation -DVT and GI prophylaxis we will use SCDs for DVT prophylaxis at this time considering severe anemia Inpatient Justification * Risk of adverse events associated with worsening signs & symptoms of principle problem and up to . * Worsening leukocytosis without steroids * Risk of adverse events related to severe illness up to and including * Treatment requiring a hospital setting: Worsening leukocytosis without being on steroids and elevated CRP * Current post hospital plan of care: Discharge home History Interval history: No new issues overnight Hospitalist Physical - Constitutional Vitals: Temp Pulse Resp BP Pulse Ox 99.0 F 120 H 18 113/62 98 04/04/22 05:31 04/04/22 09:33 04/04/22 09:33 04/04/22 05:31 04/04/22 09:46 General appearance: Present: no acute distress, well-nourished - EENT Eyes: Present: PERRL, EOM intact ENT: hearing intact, clear oral mucosa, dentition normal - Neck Neck: Present: supple, normal ROM - Respiratory Respiratory effort: normal Respiratory: bilateral: CTA - Cardiovascular Rhythm: regular Heart Sounds: Present: S1 & S2. Absent: gallop, rub - Extremities Extremities: no ischemia, No edema, Full ROM - Abdominal General gastrointestinal: soft, non-tender, non-distended, normal bowel sounds - Integumentary Integumentary: Present: clear, warm, dry - Neurologic Neurologic: CNII-XII intact, moves all extremities Results - Labs CBC & Chem 7: 04/03/22 06:03 04/03/22 06:03 Labs: Laboratory Last Values WBC 19.5 K/mm3 (4.5-11.0) H 04/03/22 06:03 RBC 3.81 M/mm3 (3.65-5.03) 04/03/22 06:03 Hgb 7.6 gm/dl (11.8-15.2) L 04/03/22 06:03 Hct 24.3 % (35.5-45.6) L 04/03/22 06:03 MCV 64 fl (84-94) L 04/03/22 06:03 MCH 20 pg (28-32) L 04/03/22 06:03 MCHC 31 % (32-34) L 04/03/22 06:03 RDW 19.9 % (13.2-15.2) H 04/03/22 06:03 Plt Count 724 K/mm3 (140-440) H 04/03/22 06:03 Lymph % (Auto) 10.3 % (13.4-35.0) L 04/01/22 13:39 [place] % (Auto) 3.2 % (0.0-7.3) 04/01/22 13:39 Eos % (Auto) 0.7 % (0.0-4.3) 04/01/22 13:39 Baso % (Auto) 0.3 % (0.0-1.8) 04/01/22 13:39 Lymph # (Auto) 1.9 K/mm3 (1.2-5.4) 04/01/22 13:39 [place] # (Auto) 0.6 K/mm3 (0.0-0.8) 04/01/22 13:39 Eos # (Auto) 0.1 K/mm3 (0.0-0.4) 04/01/22 13:39 Baso # (Auto) 0.1 K/mm3 (0.0-0.1) 04/01/22 13:39 Add Manual Diff Complete 04/02/22 06:32 Total Counted 100 04/02/22 06:32 Seg Neutrophils % Senior Loan [employer] 04/02/22 06:32 Seg Neuts % (Manual) 95.0 % (40.0-70.0) H 04/02/22 06:32 Band Neutrophils % 1.0 % 04/02/22 06:32 Lymphocytes % (Manual) 4.0 % (13.4-35.0) L 04/02/22 06:32 Reactive Lymphs % (Man) 0 % 04/02/22 06:32 Monocytes % (Manual) 0 % (0.0-7.3) 04/02/22 06:32 Eosinophils % (Manual) 0 % (0.0-4.3) 04/02/22 06:32 Basophils % (Manual) 0 % (0.0-1.8) 04/02/22 06:32 Metamyelocytes % 0 % 04/02/22 06:32 Myelocytes % 0 % 04/02/22 06:32 Promyelocytes % 0 % 04/02/22 06:32 Blast Cells % 0 % 04/02/22 06:32 Nucleated RBC % Not Reportable 04/02/22 06:32 Seg Neutrophils # 15.5 K/mm3 (1.8-7.7) H 04/01/22 13:39 Seg Neutrophils # Man 15.9 K/mm3 (1.8-7.7) H 04/02/22 06:32 Band Neutrophils # 0.2 K/mm3 04/02/22 06:32 Lymphocytes # (Manual) 0.7 K/mm3 (1.2-5.4) L 04/02/22 06:32 Abs React Lymphs (Man) 0.0 K/mm3 04/02/22 06:32 Monocytes # (Manual) 0.0 K/mm3 (0.0-0.8) 04/02/22 06:32 Eosinophils # (Manual) 0.0 K/mm3 (0.0-0.4) 04/02/22 06:32 Basophils # (Manual) 0.0 K/mm3 (0.0-0.1) 04/02/22 06:32 Metamyelocytes # 0.0 K/mm3 04/02/22 06:32 Myelocytes # 0.0 K/mm3 04/02/22 06:32 Promyelocytes # 0.0 K/mm3 04/02/22 06:32 Blast Cells # 0.0 K/mm3 04/02/22 06:32 WBC Morphology Not Reportable 04/02/22 06:32 Hypersegmented Neuts Not Reportable 04/02/22 06:32 Hyposegmented Neuts Not Reportable 04/02/22 06:32 Hypogranular Neuts Not Reportable 04/02/22 06:32 Smudge Cells Not Reportable 04/02/22 06:32 Toxic Granulation Not Reportable 04/02/22 06:32 Toxic Vacuolation Not Reportable 04/02/22 06:32 Dohle Bodies Not Reportable 04/02/22 06:32 Pelger-Huet Anomaly Not Reportable 04/02/22 06:32 Zach Rods Not Reportable 04/02/22 06:32 Platelet Estimate Consistent w auto 04/02/22 06:32 Clumped Platelets Not Reportable 04/02/22 06:32 Plt Clumps, EDTA Not Reportable 04/02/22 06:32 Large Platelets Not Reportable 04/02/22 06:32 Giant Platelets Not Reportable 04/02/22 06:32 Platelet Satelliting Not Reportable 04/02/22 06:32 Plt Morphology Comment Not Reportable 04/02/22 06:32 RBC Morphology Not Reportable 04/02/22 06:32 Dimorphic RBCs Not Reportable 04/02/22 06:32 Polychromasia Not Reportable 04/02/22 06:32 Hypochromasia 2+ 04/02/22 06:32 Poikilocytosis Not Reportable 04/02/22 06:32 Anisocytosis 1+ 04/02/22 06:32 Microcytosis 2+ 04/02/22 06:32 Macrocytosis Not Reportable 04/02/22 06:32 Spherocytes Not Reportable 04/02/22 06:32 Pappenheimer Bodies Not Reportable 04/02/22 06:32 Sickle Cells Not Reportable 04/02/22 06:32 Target Cells Not Reportable 04/02/22 06:32 Tear Drop Cells Not Reportable 04/02/22 06:32 Ovalocytes Not Reportable 04/02/22 06:32 Helmet Cells Not Reportable 04/02/22 06:32 Marquis-Parchment Bodies Not Reportable 04/02/22 06:32 [place] Rings Not Reportable 04/02/22 06:32 Hayes Cells Not Reportable 04/02/22 06:32 Bite Cells Not Reportable 04/02/22 06:32 Crenated Cell Not Reportable 04/02/22 06:32 Elliptocytes Not Reportable 04/02/22 06:32 Acanthocytes (Spur) Not Reportable 04/02/22 06:32 Rouleaux Not Reportable 04/02/22 06:32 Hemoglobin C Crystals Not Reportable 04/02/22 06:32 Schistocytes Not Reportable 04/02/22 06:32 Malaria parasites Not Reportable 04/02/22 06:32 Maxim Bodies Not Reportable 04/02/22 06:32 Hem Pathologist Commnt No 04/02/22 06:32 PT 16.4 Sec. (12.2-14.9) H 04/01/22 13:39 INR 1.18 (0.87-1.13) H 04/01/22 13:39 APTT 44.2 Sec. (24.2-36.6) H 04/01/22 13:39 Sodium 141 mmol/L (137-145) 04/03/22 06:03 Potassium 4.5 mmol/L (3.6-5.0) 04/03/22 06:03 Chloride 107.2 mmol/L (98-107) H 04/03/22 06:03 Carbon Dioxide 21 mmol/L (22-30) L 04/03/22 06:03 Anion Gap 17 mmol/L 04/03/22 06:03 BUN 21 mg/dL (9-20) H 04/03/22 06:03 Creatinine 0.5 mg/dL (0.8-1.3) L 04/03/22 06:03 Estimated GFR > 60 ml/min 04/03/22 06:03 BUN/Creatinine Ratio 42 % 04/03/22 06:03 Glucose 122 mg/dL (75-100) H 04/03/22 06:03 Lactic Acid 1.00 mmol/L (0.7-2.0) 04/01/22 16:04 Calcium 8.6 mg/dL (8.4-10.2) 04/03/22 06:03 Iron 11 ug/dL (49-181) L 04/02/22 06:32 TIBC 144 mcg/dL (250-450) L 04/02/22 06:32 Ferritin 2290.0 ng/mL (30.0-300.0) H 04/02/22 06:32 Total Bilirubin < 0.20 mg/dL (0.1-1.2) 04/02/22 06:32 AST 30 units/L (5-40) 04/02/22 06:32 ALT 24 units/L (7-56) 04/02/22 06:32 Alkaline Phosphatase 49 units/L (35-129) 04/02/22 06:32 Lactate Dehydrogenase 328 units/L (91-180) H 04/02/22 06:32 C-Reactive Protein 18.10 mg/dL (0.00-1.30) H 04/02/22 06:32 C-Reactive Protein Cancelled 04/02/22 06:32 Total Protein 6.7 g/dL (6.3-8.2) 04/02/22 06:32 Albumin 2.9 g/dL (3.9-5) L 04/02/22 06:32 Albumin/Globulin Ratio 0.8 % 04/02/22 06:32 Procalcitonin 0.42 ng/mL (<0.15) 04/01/22 13:39 Rheumatoid Factor 21 IU/ml (0-13) H 04/02/22 06:32 Coronavirus (PCR) Negative (Negative) 04/02/22 10:05 Microbiology: Microbiology 04/01/22 16:04 Peripheral/Venous Blood Culture - Preliminary NO GROWTH AFTER 48 HOURS 04/01/22 16:04 Peripheral/Venous Blood Culture - Preliminary NO GROWTH AFTER 48 HOURS 04/03/22 15:30 Stool Stool Occult Blood (VIJAYA) - Final Pruett/IV: Voiding Method Urinal Active Medications - Current Medications Current Medications: Generic Name Dose Route Start Last Admin Trade Name Freq PRN Reason Stop Dose Admin Acetaminophen 650 mg 04/01/22 20:43 04/03/22 22:53 Acetaminophen 325 Mg Tab PO 650 mg Q4H PRN Administration Pain MILD(1-3)/Fever >100.5/BOWEN Albuterol 2.5 mg 04/01/22 20:57 Albuterol 2.5 Mg/3 Ml Nebu IH Q3HRT PRN Wheezing Albuterol/Ipratropium 1 ampul 04/02/22 20:00 04/03/22 20:51 Ipratropium/Albuterol Sulfate 3 Ml Ampul.Neb IH 1 ampul TIDRT GOGO Administration Azithromycin 500 mg 04/02/22 18:00 04/03/22 19:29 Azithromycin 250 Mg Tab PO 04/05/22 18:01 500 mg QPM GOGO Administration Guaifenesin 200 mg 04/02/22 00:43 04/03/22 12:07 Guaifenesin 100 Mg/5 Ml Oral Liqd PO 200 mg Q6HR PRN Administration Cough Ceftriaxone Sodium 2 gm in 100 mls @ 200 mls/hr 04/02/22 17:00 04/03/22 20:31 Rocephin/Ns 2 Gm/100 Ml IV 04/05/22 23:59 200 mls/hr Q24H GOGO Administration Protocol Sodium Chloride 1,000 mls @ 125 mls/hr 04/02/22 11:00 04/04/22 07:25 Nacl 0.9% 1000 Ml IV 125 mls/hr DIRECT GOGO Administration Lisinopril 20 mg 04/01/22 21:00 04/03/22 12:06 Lisinopril 20 Mg Tab PO 20 mg QDAY GOGO Administration Methocarbamol 500 mg 04/01/22 20:41 Methocarbamol 500 Mg Tab PO TID PRN Muscle Spasm Metoclopramide HCl 10 mg 04/01/22 20:48 Metoclopramide 10 Mg/2 Ml Inj IV Q6H PRN Nausea And Vomiting Morphine Sulfate 2 mg 04/01/22 20:48 Morphine 2 Mg/1 Ml Inj IV Q4H PRN Pain, Moderate (4-6) Ondansetron HCl 4 mg 04/01/22 20:43 Ondansetron 4 Mg/2 Ml Inj IV Q8H PRN Nausea And Vomiting Oxycodone/Acetaminophen 1 tab 04/01/22 20:48 04/03/22 22:42 Oxycodone /Acetaminophen 5-325mg Tab PO 1 tab Q6H PRN Administration Pain, Moderate (4-6) Pantoprazole Sodium 40 mg 04/02/22 07:30 04/04/22 07:24 Pantoprazole 40 Mg Tab PO 40 mg QDAC GOGO Administration Phenol 1 spray 04/02/22 00:17 04/04/22 07:27 Phenol 1.4% 177 Ml Bottle MM 1 spray BID PRN Administration Sore Throat Sodium Chloride 10 ml 04/01/22 22:00 04/03/22 22:42 Sodium Chloride 0.9% 10 Ml Flush Syringe IV 10 ml BID GOGO Administration Sodium Chloride 10 ml 04/01/22 20:43 Sodium Chloride 0.9% 10 Ml Flush Syringe IV PRN PRN LINE FLUSH
[2022-04-04 10:09] LABS: Blood Urea Nitrogen 17 mg/dL (9-20); Calcium 8.1 mg/dL (8.4-10.2); Hemolysis Index 1
[2022-04-04 10:11] LABS: BUN/Creatinine Ratio 28; Hemoglobin 7.1 gm/dl (11.8-15.2)
[2022-04-04 10:20] LABS: Mean Corpuscular HGB Conc 29 % (32-34); Platelet Count 710 K/mm3 (140-440); Red Blood Count 3.92 M/mm3 (3.65-5.03); Red Cell Distribution Width 19.7 % (13.2-15.2)
[2022-04-04 10:21] LABS: Mean Corpuscular Volume 64 fl (84-94)
[2022-04-04] MEDS: LISINOPRIL 20 MG TAB PO SCH (12:22)
--- NOTE | 2022-04-04 13:30 | Consultation ---
History of Present Illness - Reason for Consult Consult date: 04/04/22 Sepsis, pneumonia Requesting physician: TATIANA DAMON - History of Present Illness The patient is a 46-year-old male with hypertension, anemia admitted with shortness of breath on minimal exertion along with cough and abnormal chest x- ray. Symptoms have been somewhat chronic, followed up with his primary care provider. Chest x-ray since November has shown multilobar interstitial process which has been unchanged. CT scan revealed extensive pulmonary opacities with groundglass densities, fibrosis, interstitial nodularity, extensive mediastinal, paratracheal, hilar and axillary lymphadenopathy. Has been on ceftriaxone, azithromycin. Labs have shown persistent leukocytosis and thrombocytosis. Infectious diseases was consulted for additional evaluation. Ferritin 2290, LDH 328, CRP 18.1. RA factor high at 21. COVID-19 PCR is negative. Born in [place], has only lived in [place] and [place]. He used to work at [employer]. Denies any sick contacts. Denies smoking, alcohol or any drug use. Denies homelessness, denies history of incarceration. No family history of sim ilar condition / autoimmune disease Review of Systems: General: no fevers,chills or rigors HEENT: no new visual disturbance Respiratory: cough, sputum + Cardiovascular: No chest pain, syncope Gastrointestinal: No nausea, vomiting or diarrhea Genitourinary: No dysuria or hematuria Musculoskeletal: No new or worsening neck pain or back pain Neurologic: No headaches, seizures Hematologic: No easy bruising or bleeding Endocrine: No night sweats or acute weight loss Skin: negative for rash, jaundice Psychiatric: No suicidal or homicidal ideation Past History Past Medical History: hypertension Medications and Allergies Allergies Allergy/AdvReac Type Severity Reaction Status Date / Time No Known Allergies Allergy Verified 11/30/21 09:40 Home Medications Medication Instructions Recorded Confirmed Last Taken Type lisinopriL [Zestril TAB] 20 mg PO QDAY #30 tablet 10/19/20 04/02/22 Unknown Rx Active Meds: Active Medications Acetaminophen (Acetaminophen 325 Mg Tab) 650 mg PO Q4H PRN PRN Reason: Pain MILD(1-3)/Fever >100.5/BOWEN Last Admin: 04/03/22 22:53 Dose: 650 mg Albuterol (Albuterol 2.5 Mg/3 Ml Nebu) 2.5 mg IH Q3HRT PRN PRN Reason: Wheezing Albuterol/Ipratropium (Ipratropium/Albuterol Sulfate 3 Ml Ampul.Neb) 1 ampul IH TIDRT [facility] Last Admin: 04/03/22 20:51 Dose: 1 ampul Azithromycin (Azithromycin 250 Mg Tab) 500 mg PO QPM [facility] Stop: 04/05/22 18:01 Last Admin: 04/03/22 19:29 Dose: 500 mg Guaifenesin (Guaifenesin 100 Mg/5 Ml Oral Liqd) 200 mg PO Q6HR PRN PRN Reason: Cough Last Admin: 04/03/22 12:07 Dose: 200 mg Ceftriaxone Sodium (Rocephin/Ns 2 Gm/100 Ml) 2 gm in 100 mls @ 200 mls/hr IV Q24H [facility]; Protocol Stop: 04/05/22 23:59 Last Admin: 04/03/22 20:31 Dose: 200 mls/hr Sodium Chloride (Nacl 0.9% 1000 Ml) 1,000 mls @ 125 mls/hr IV DIRECT [facility] Last Admin: 04/04/22 07:25 Dose: 125 mls/hr Lisinopril (Lisinopril 20 Mg Tab) 20 mg PO QDAY [facility] Last Admin: 04/04/22 12:22 Dose: 20 mg Methocarbamol (Methocarbamol 500 Mg Tab) 500 mg PO TID PRN PRN Reason: Muscle Spasm Metoclopramide HCl (Metoclopramide 10 Mg/2 Ml Inj) 10 mg IV Q6H PRN PRN Reason: Nausea And Vomiting Morphine Sulfate (Morphine 2 Mg/1 Ml Inj) 2 mg IV Q4H PRN PRN Reason: Pain, Moderate (4-6) Ondansetron HCl (Ondansetron 4 Mg/2 Ml Inj) 4 mg IV Q8H PRN PRN Reason: Nausea And Vomiting Oxycodone/Acetaminophen (Oxycodone /Acetaminophen 5-325mg Tab) 1 tab PO Q6H PRN PRN Reason: Pain, Moderate (4-6) Last Admin: 04/03/22 22:42 Dose: 1 tab Pantoprazole Sodium (Pantoprazole 40 Mg Tab) 40 mg PO QDAC [facility] Last Admin: 04/04/22 07:24 Dose: 40 mg Phenol (Phenol 1.4% 177 Ml Bottle) 1 spray MM BID PRN PRN Reason: Sore Throat Last Admin: 04/04/22 07:27 Dose: 1 spray Sodium Chloride (Sodium Chloride 0.9% 10 Ml Flush Syringe) 10 ml IV BID GOGO Last Admin: 04/04/22 12:22 Dose: 10 ml Sodium Chloride (Sodium Chloride 0.9% 10 Ml Flush Syringe) 10 ml IV PRN PRN PRN Reason: LINE FLUSH Physical Examination - Physical Exam Narrative exam: Physical Exam: Constitutional: Alert, cooperative. No acute distress Head, Ears, Nose: Normocephalic, atraumatic. External ears, nose normal Eyes: Conjunctivae/corneas clear. No icterus. No ptosis. Neck: Supple, no meningeal signs Oral: Cardiovascular: S1, S2 + Respiratory: Bilateral crackles GI: Soft, non-tender; bowel sounds normal. No peritoneal signs Musculoskeletal: No pedal edema, no cyanosis. Skin: No rash or abscess Hem/Lymphatic: No palpable cervical or supraclavicular nodes. No lymphangitis Psych: Mood ok. Affect normal Neurological: Awake, alert, oriented. No gross abnormality - Constitutional Vitals: Vital Signs Temp Pulse Resp BP Pulse Ox 98.2 F 128 H 20 127/68 91 04/04/22 12:16 04/04/22 12:16 04/04/22 12:16 04/04/22 12:16 04/04/22 12:16 Temperature -Last 24 Hours Temperature 98.2 F Temperature 99.0 F Temperature 97.9 F Temperature 97.5 F Results - Labs CBC & Chem 7: 04/04/22 09:19 04/04/22 09:19 Labs: Abnormal lab results 04/04/22 04/04/22 Range/Units 09:19 09:19 WBC 15.7 H (4.5-11.0) K/mm3 Hgb 7.1 L (11.8-15.2) gm/dl Hct 25.0 L (35.5-45.6) % MCV 64 L (84-94) fl MCH 19 L (28-32) pg MCHC 29 L (32-34) % RDW 19.7 H (13.2-15.2) % Plt Count 710 H (140-440) K/mm3 Creatinine 0.6 L (0.8-1.3) mg/dL Glucose 74 L (75-100) mg/dL Calcium 8.1 L (8.4-10.2) mg/dL - Imaging and Cardiology Chest x-ray: report reviewed, image reviewed (b/l interstitial opacities, chronic since Nov 2021) Assessment and Plan Cultures: COVID-19 PCR: Negative 04/01/2022 blood culture: No growth A/P: 46-year-old male with hypertension, anemia with: #Bilateral interstitial pneumonia: Chronic, going on since November 2021. Infectious v/s inflammatory. RA factor positive: 21. Ferritin 2290, LDH 328, CRP 18.1. Born in [place], has [place] lived in [place] and [place]. He used to work at [employer]. Denies any sick contacts. Denies smoking, alcohol or any drug use. Denies homelessness, denies history of incarceration. #Extensive mediastinal, paratracheal, hilar and axillary lymphadenopathy #Leukocytosis, reactive thrombocytosis Recs: -Complete 5 days of ceftriaxone, azithromycin -Agree with need for bronchoscopy, BAL for cytology, cultures (fungal, AFB and bacterial) and possible transbronchial biopsy -HIV, verbal and written informed consent obtained from patient, given to RN -Autoimmune work-up -f/u sputum culture Frandy Luke MD, [facility] O: [phone] F: [phone] C: [phone]
[2022-04-04] MEDS: AZITHROMYCIN 250 MG TAB PO SCH (17:22)
[2022-04-04] MEDS: cefTRIAXone/NS 2 GM/100 ML 2 GM/100 ML BAG IV SCH (17:22)
[2022-04-04] MEDS: guaiFENesin 100 MG/5 ML ORAL LIQD PO PRN (20:23)
[2022-04-05] MEDS: SODIUM CHLORIDE 0.9% 1000 ML 1,000 ML IV SCH ×2 (02:04→18:18)
[2022-04-05] MEDS: IPRATROPIUM/ALBUTEROL SULFATE 3 ML AMPUL.NEB IH SCH ×4 (09:05→20:00)
[2022-04-05] MEDS: LISINOPRIL 20 MG TAB PO SCH (09:09)
[2022-04-05] MEDS: PANTOPRAZOLE 40 MG TAB PO SCH (09:09)
--- NOTE | 2022-04-05 09:21 | Progress Note ---
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 Uncommon to have adenopathy and ILD unless there is superimposed infection on top of ILD or two separate processes occurring. With that being said, I agree with the fact that tissue is needed but I think patient needs lymph node biopsy as well as lung biopsy and likely surgical. The ILD is extensive but not very dense and I am afraid that TBBx would not get enough tissue and miss the diagnosis. Will discuss this with patient but I feel he should be referred to CT surgery who could do a mead and surgical lung biopsy all in one procedure. This referral could take place as an outpatient. Would suggest sending ABAD panel (VALENTIN, if positive then DS DNA, Anti Elvira-1, Anti Ro and Anti La, Anti CCP, Aldolase, Anti SCL 70 and PM-1 (also known as PM-ScL). CK levels already sent. The majority of these labs will likely be a send out. This could also be sarcoid as well which the lymph node biopsy will help with as well. Subjective Date of service: 04/05/22 Interval history: No acute events. Still on Room Air. Reviewed ID consult Objective Vital Signs - 12hr 04/04/22 04/04/22 04/05/22 22:46 23:00 05:43 Temperature 98.2 F 98.8 F Pulse Rate 114 H 111 H Pulse Rate [ Anterior Bilateral Throughout] Pulse Rate [ Bilateral Throughout] Respiratory 18 18 Rate Respiratory Rate [Anterior Bilateral Throughout] Respiratory Rate [Bilateral Throughout] Blood Pressure 104/59 122/76 O2 Sat by Pulse 99 96 97 Oximetry 04/05/22 04/05/22 09:08 09:13 Temperature Pulse Rate Pulse Rate [ 118 H Anterior Bilateral Throughout] Pulse Rate [ 118 H Bilateral Throughout] Respiratory Rate Respiratory 18 Rate [Anterior Bilateral Throughout] Respiratory 18 Rate [Bilateral Throughout] Blood Pressure O2 Sat by Pulse 92 Oximetry Constitutional: no acute distress Eyes: non-icteric ENT: oropharynx moist Neck: supple, no lymphadenopathy, no JVD Effort: normal Ascultation: Bilateral: rhonchi Cardiovascular: regular rate and rhythm Gastrointestinal: normoactive bowel sounds, soft, non-tender Extremities: no cyanosis, no edema, pink and warm, other (Clubbing of the fingernails noted) Neurologic: normal mental status Psychiatric: mood appropriate CBC and BMP: 04/04/22 09:19 04/04/22 09:19 ABG, PT/INR, D-dimer: PT/INR, D-dimer PT 16.4 Sec. (12.2-14.9) H 04/01/22 13:39 INR 1.18 (0.87-1.13) H 04/01/22 13:39 Abnormal lab findings: Abnormal Labs 04/01/22 04/01/22 04/01/22 13:39 13:39 13:39 WBC 18.1 H Hgb 8.1 L Hct 27.7 L MCV 63 L MCH 19 L MCHC 29 L RDW 19.8 H Plt Count 739 H Lymph % (Auto) 10.3 L Seg Neutrophils % 85.5 H Seg Neuts % (Manual) Lymphocytes % (Manual) Seg Neutrophils # 15.5 H Seg Neutrophils # Man Lymphocytes # (Manual) PT 16.4 H INR 1.18 H APTT 44.2 H Sodium 133 L Potassium Chloride 96.7 L Carbon Dioxide 21 L BUN Creatinine 0.6 L Glucose Calcium Iron TIBC Ferritin AST 42 H Lactate Dehydrogenase C-Reactive Protein Albumin 3.4 L Rheumatoid Factor 04/02/22 04/02/22 04/02/22 06:32 06:32 06:32 WBC 16.7 H Hgb 7.7 L Hct 24.0 L MCV 62 L MCH 20 L MCHC RDW 19.7 H Plt Count 690 H Lymph % (Auto) Seg Neutrophils % Seg Neuts % (Manual) 95.0 H Lymphocytes % (Manual) 4.0 L Seg Neutrophils # Seg Neutrophils # Man 15.9 H Lymphocytes # (Manual) 0.7 L PT INR APTT Sodium 135 L Potassium 5.4 H D Chloride Carbon Dioxide BUN Creatinine 0.5 L Glucose 120 H Calcium Iron 11 L TIBC 144 L Ferritin AST Lactate Dehydrogenase C-Reactive Protein Albumin 2.9 L Rheumatoid Factor 04/02/22 04/02/22 04/02/22 06:32 06:32 06:32 WBC Hgb Hct MCV MCH MCHC RDW Plt Count Lymph % (Auto) Seg Neutrophils % Seg Neuts % (Manual) Lymphocytes % (Manual) Seg Neutrophils # Seg Neutrophils # Man Lymphocytes # (Manual) PT INR APTT Sodium Potassium Chloride Carbon Dioxide BUN Creatinine Glucose Calcium Iron TIBC Ferritin 2290.0 H AST Lactate Dehydrogenase 328 H C-Reactive Protein 18.10 H Albumin Rheumatoid Factor 21 H 04/03/22 04/03/22 04/04/22 06:03 06:03 09:19 WBC 19.5 H 15.7 H Hgb 7.6 L 7.1 L Hct 24.3 L 25.0 L MCV 64 L 64 L MCH 20 L 19 L MCHC 31 L 29 L RDW 19.9 H 19.7 H Plt Count 724 H 710 H Lymph % (Auto) Seg Neutrophils % Seg Neuts % (Manual) Lymphocytes % (Manual) Seg Neutrophils # Seg Neutrophils # Man Lymphocytes # (Manual) PT INR APTT Sodium Potassium Chloride 107.2 H Carbon Dioxide 21 L BUN 21 H Creatinine 0.5 L Glucose 122 H Calcium Iron TIBC Ferritin AST Lactate Dehydrogenase C-Reactive Protein Albumin Rheumatoid Factor 04/04/22 09:19 WBC Hgb Hct MCV MCH MCHC RDW Plt Count Lymph % (Auto) Seg Neutrophils % Seg Neuts % (Manual) Lymphocytes % (Manual) Seg Neutrophils # Seg Neutrophils # Man Lymphocytes # (Manual) PT INR APTT Sodium Potassium Chloride Carbon Dioxide BUN Creatinine 0.6 L Glucose 74 L Calcium 8.1 L Iron TIBC Ferritin AST Lactate Dehydrogenase C-Reactive Protein Albumin Rheumatoid Factor
--- NOTE | 2022-04-05 10:22 | Progress Note ---
Assessment and Plan Assessment and plan: 46-year-old non-smoker male with a past medical history of hypertension and anemia presents to the hospital complaining of persistent dyspnea on minimal exertion, cough, and abnormal chest x-ray. Patient was seen here in November for similar symptoms. He was diagnosed with multifocal pneumonia and was discharged on azithromycin. Patient is vaccinated for COVID however, he did not receive the booster. He did obtain a COVID test in November after ED presentation and states it was negative. He has since followed with Dr. Russell as recently as 2 days ago. He reports that his x-ray is unchanged and he has been referred to a dumpman. Imaging on admission revealed chest x-ray: image reviewed (Extensive bilateral lower lobe infiltrate) CT scan - chest: image reviewed (Mediastinal lymphadenopathy with diffuse interstitial alveolar groundglass opacity bilaterally more distributed in the lower lobes and peripherally.) The patient was admitted with diagnosis below: Acute hypoxic respiratory failure Sepsis secondary to possible gram-negative bill pneumonia Bilateral interstitial lung disease inflammatory versus infectious. Mediastinal adenopathy related to above Post COVID fatigue syndrome Possible bronchiectasis secondary to post-COVID Anemia likely of chronic disorder Hypertension Tobacco abuse Thrombocytosis Hospital course: 04/02: -Discussed with pulmonology agree with current work-up which include: Sputum for gram stain and C&S and AFB smear and culture, Check for markers of inflammation such as CRP, Basic check for collagen vascular disorder and sarcoidosis and possible bronchoscopy for biopsy -Continue with antibiotic therapy -Doubt that the patient has any reactive airway disease as a result we will steroids it may affect the work-up and the results of the testing -If no clinical improvement will obtain ID consultation -Continue nebulizer as needed - The combination of weight loss, chronic cough, severe anemia, adenopathy and thrombocytosis lead to considering chronic infection, inflammation, malignancy or otherwise -We will check stool for occult blood and if positive will obtain GI evaluation -Extensive counseling on tobacco use cessation presented to the patient he verbalized understanding -DVT and GI prophylaxis we will use SCDs for DVT prophylaxis at this time considering severe anemia - Called and updated the patients brother -35 minutes advance care planning including preventive care discussion. Patient verbalized understanding. 04/03: Work-up still ongoing AFB smear and culture were not collected I discussed with nursing staff to obtain this. This can be followed outpatient as we do not believe the patient has active tuberculosis at this time. I am also obtaining a home O2 evaluation and treat. Based on this result and if patient's leukocytosis begins to trend downwards patient can be discharged in a.m. Leukocytosis is the reason why we are keeping the patient an additional day we will continue antibiotics. He is not on steroids and as a result I expect that the leukocytosis will be trending down. He has an elevated CRP which favors infection versus inflammation we will continue to monitor closely. 04/04: Follow-up sputum for gram stain and C&S and AFB smear and culture, Check for markers of inflammation such as CRP, Basic check for collagen vascular disor jovana and sarcoidosis and possible bronchoscopy for biopsy -Continue with antibiotic therapy -Doubt that the patient has any reactive airway disease as a result we will steroids it may affect the work-up and the results of the testing -We will obtain ID consultation given the worsening leukocytosis -Continue nebulizer as needed - The combination of weight loss, chronic cough, severe anemia, adenopathy and thrombocytosis lead to considering chronic infection, inflammation, malignancy or otherwise -Follow-up stool for occult blood and if positive will obtain GI evaluation -DVT and GI prophylaxis we will use SCDs for DVT prophylaxis at this time considering severe anemia 04/05: Pulmonary feels that the patient should be referred to CT surgery for a meet and surgical lung biopsy all-in-one procedure. Patient will also have ABAD panel including VALENTIN, dsDNA, anti-Jo1, anti-Ro and anti-LA, anti-CCP Aldolase, Anti SCL 70 and PM-1 (also known as PM-ScL). Infectious disease recommends completion of 5 days of ceftriaxone/azithromycin. Also ID agrees with need for BAL for cytology, cultures for fungal, AFB and bacterial and possible transbronchial biopsy. Patient reportedly with room air and saturations of 92%. Patient will likely need walk test at the time of discharge. Leukocytosis has improved History Interval history: No new issues overnight Hospitalist Physical - Constitutional Vitals: Temp Pulse Resp BP Pulse Ox 97.9 F 115 H 18 114/79 99 04/05/22 09:13 04/05/22 09:13 04/05/22 09:13 04/05/22 09:13 04/05/22 09:13 General appearance: Present: no acute distress, well-nourished - EENT Eyes: Present: PERRL, EOM intact ENT: hearing intact, clear oral mucosa, dentition normal - Neck Neck: Present: supple, normal ROM - Respiratory Respiratory effort: normal Respiratory: bilateral: CTA - Cardiovascular Rhythm: regular Heart Sounds: Present: S1 & S2. Absent: gallop, rub - Extremities Extremities: no ischemia, No edema, Full ROM - Abdominal General gastrointestinal: soft, non-tender, non-distended, normal bowel sounds - Integumentary Integumentary: Present: clear, warm, dry - Neurologic Neurologic: CNII-XII intact, moves all extremities Results - Labs CBC & Chem 7: 04/04/22 09:19 04/04/22 09:19 Labs: Laboratory Last Values WBC 15.7 K/mm3 (4.5-11.0) H 04/04/22 09:19 RBC 3.92 M/mm3 (3.65-5.03) 04/04/22 09:19 Hgb 7.1 gm/dl (11.8-15.2) L 04/04/22 09:19 Hct 25.0 % (35.5-45.6) L 04/04/22 09:19 MCV 64 fl (84-94) L 04/04/22 09:19 MCH 19 pg (28-32) L 04/04/22 09:19 MCHC 29 % (32-34) L 04/04/22 09:19 RDW 19.7 % (13.2-15.2) H 04/04/22 09:19 Plt Count 710 K/mm3 (140-440) H 04/04/22 09:19 Lymph % (Auto) 10.3 % (13.4-35.0) L 04/01/22 13:39 Amelia % (Auto) 3.2 % (0.0-7.3) 04/01/22 13:39 Eos % (Auto) 0.7 % (0.0-4.3) 04/01/22 13:39 Baso % (Auto) 0.3 % (0.0-1.8) 04/01/22 13:39 Lymph # (Auto) 1.9 K/mm3 (1.2-5.4) 04/01/22 13:39 Amelia # (Auto) 0.6 K/mm3 (0.0-0.8) 04/01/22 13:39 Eos # (Auto) 0.1 K/mm3 (0.0-0.4) 04/01/22 13:39 Baso # (Auto) 0.1 K/mm3 (0.0-0.1) 04/01/22 13:39 Add Manual Diff Complete 04/02/22 06:32 Total Counted 100 04/02/22 06:32 Seg Neutrophils % Cab Starter 04/02/22 06:32 Seg Neuts % (Manual) 95.0 % (40.0-70.0) H 04/02/22 06:32 Band Neutrophils % 1.0 % 04/02/22 06:32 Lymphocytes % (Manual) 4.0 % (13.4-35.0) L 04/02/22 06:32 Reactive Lymphs % (Man) 0 % 04/02/22 06:32 Monocytes % (Manual) 0 % (0.0-7.3) 04/02/22 06:32 Eosinophils % (Manual) 0 % (0.0-4.3) 04/02/22 06:32 Basophils % (Manual) 0 % (0.0-1.8) 04/02/22 06:32 Metamyelocytes % 0 % 04/02/22 06:32 Myelocytes % 0 % 04/02/22 06:32 Promyelocytes % 0 % 04/02/22 06:32 Blast Cells % 0 % 04/02/22 06:32 Nucleated RBC % Not Reportable 04/02/22 06:32 Seg Neutrophils # 15.5 K/mm3 (1.8-7.7) H 04/01/22 13:39 Seg Neutrophils # Man 15.9 K/mm3 (1.8-7.7) H 04/02/22 06:32 Band Neutrophils # 0.2 K/mm3 04/02/22 06:32 Lymphocytes # (Manual) 0.7 K/mm3 (1.2-5.4) L 04/02/22 06:32 Abs React Lymphs (Man) 0.0 K/mm3 04/02/22 06:32 Monocytes # (Manual) 0.0 K/mm3 (0.0-0.8) 04/02/22 06:32 Eosinophils # (Manual) 0.0 K/mm3 (0.0-0.4) 04/02/22 06:32 Basophils # (Manual) 0.0 K/mm3 (0.0-0.1) 04/02/22 06:32 Metamyelocytes # 0.0 K/mm3 04/02/22 06:32 Myelocytes # 0.0 K/mm3 04/02/22 06:32 Promyelocytes # 0.0 K/mm3 04/02/22 06:32 Blast Cells # 0.0 K/mm3 04/02/22 06:32 WBC Morphology Not Reportable 04/02/22 06:32 Hypersegmented Neuts Not Reportable 04/02/22 06:32 Hyposegmented Neuts Not Reportable 04/02/22 06:32 Hypogranular Neuts Not Reportable 04/02/22 06:32 Smudge Cells Not Reportable 04/02/22 06:32 Toxic Granulation Not Reportable 04/02/22 06:32 Toxic Vacuolation Not Reportable 04/02/22 06:32 Dohle Bodies Not Reportable 04/02/22 06:32 Pelger-Huet Anomaly Not Reportable 04/02/22 06:32 Zach Rods Not Reportable 04/02/22 06:32 Platelet Estimate Consistent w auto 04/02/22 06:32 Clumped Platelets Not Reportable 04/02/22 06:32 Plt Clumps, EDTA Not Reportable 04/02/22 06:32 Large Platelets Not Reportable 04/02/22 06:32 Giant Platelets Not Reportable 04/02/22 06:32 Platelet Satelliting Not Reportable 04/02/22 06:32 Plt Morphology Comment Not Reportable 04/02/22 06:32 RBC Morphology Not Reportable 04/02/22 06:32 Dimorphic RBCs Not Reportable 04/02/22 06:32 Polychromasia Not Reportable 04/02/22 06:32 Hypochromasia 2+ 04/02/22 06:32 Poikilocytosis Not Reportable 04/02/22 06:32 Anisocytosis 1+ 04/02/22 06:32 Microcytosis 2+ 04/02/22 06:32 Macrocytosis Not Reportable 04/02/22 06:32 Spherocytes Not Reportable 04/02/22 06:32 Pappenheimer Bodies Not Reportable 04/02/22 06:32 Sickle Cells Not Reportable 04/02/22 06:32 Target Cells Not Reportable 04/02/22 06:32 Tear Drop Cells Not Reportable 04/02/22 06:32 Ovalocytes Not Reportable 04/02/22 06:32 Helmet Cells Not Reportable 04/02/22 06:32 Marquis-Levan Bodies Not Reportable 04/02/22 06:32 [place] Rings Not Reportable 04/02/22 06:32 Hayes Cells Not Reportable 04/02/22 06:32 Bite Cells Not Reportable 04/02/22 06:32 Crenated Cell Not Reportable 04/02/22 06:32 Elliptocytes Not Reportable 04/02/22 06:32 Acanthocytes (Spur) Not Reportable 04/02/22 06:32 Rouleaux Not Reportable 04/02/22 06:32 Hemoglobin C Crystals Not Reportable 04/02/22 06:32 Schistocytes Not Reportable 04/02/22 06:32 Malaria parasites Not Reportable 04/02/22 06:32 Maxim Bodies Not Reportable 04/02/22 06:32 Hem Pathologist Commnt No 04/02/22 06:32 PT 16.4 Sec. (12.2-14.9) H 04/01/22 13:39 INR 1.18 (0.87-1.13) H 04/01/22 13:39 APTT 44.2 Sec. (24.2-36.6) H 04/01/22 13:39 Sodium 139 mmol/L (137-145) 04/04/22 09:19 Potassium 3.8 mmol/L (3.6-5.0) 04/04/22 09:19 Chloride 106.4 mmol/L (98-107) 04/04/22 09:19 Carbon Dioxide 22 mmol/L (22-30) 04/04/22 09:19 Anion Gap 14 mmol/L 04/04/22 09:19 BUN 17 mg/dL (9-20) 04/04/22 09:19 Creatinine 0.6 mg/dL (0.8-1.3) L 04/04/22 09:19 Estimated GFR > 60 ml/min 04/04/22 09:19 BUN/Creatinine Ratio 28 % 04/04/22 09:19 Glucose 74 mg/dL (75-100) L 04/04/22 09:19 Lactic Acid 1.00 mmol/L (0.7-2.0) 04/01/22 16:04 Calcium 8.1 mg/dL (8.4-10.2) L 04/04/22 09:19 Iron 11 ug/dL (49-181) L 04/02/22 06:32 TIBC 144 mcg/dL (250-450) L 04/02/22 06:32 Ferritin 2290.0 ng/mL (30.0-300.0) H 04/02/22 06:32 Total Bilirubin < 0.20 mg/dL (0.1-1.2) 04/02/22 06:32 AST 30 units/L (5-40) 04/02/22 06:32 ALT 24 units/L (7-56) 04/02/22 06:32 Alkaline Phosphatase 49 units/L (35-129) 04/02/22 06:32 Lactate Dehydrogenase 328 units/L (91-180) H 04/02/22 06:32 C-Reactive Protein 18.10 mg/dL (0.00-1.30) H 04/02/22 06:32 C-Reactive Protein Cancelled 04/02/22 06:32 Total Protein 6.7 g/dL (6.3-8.2) 04/02/22 06:32 Albumin 2.9 g/dL (3.9-5) L 04/02/22 06:32 Albumin/Globulin Ratio 0.8 % 04/02/22 06:32 Procalcitonin 0.42 ng/mL (<0.15) 04/01/22 13:39 Rheumatoid Factor 21 IU/ml (0-13) H 04/02/22 06:32 Coronavirus (PCR) Negative (Negative) 04/02/22 10:05 HIV 1&2 Antibody Rapid Non react (Non React) 04/04/22 14:35 HIV P24 Antigen Non react (Non React) 04/04/22 14:35 Microbiology: Microbiology 04/01/22 16:04 Peripheral/Venous Blood Culture - Preliminary NO GROWTH AFTER 72 HOURS 04/01/22 16:04 Peripheral/Venous Blood Culture - Preliminary NO GROWTH AFTER 72 HOURS Pruett/IV: Voiding Method Urinal Active Medications - Current Medications Current Medications: Generic Name Dose Route Start Last Admin Trade Name Freq PRN Reason Stop Dose Admin Acetaminophen 650 mg 04/01/22 20:43 04/03/22 22:53 Acetaminophen 325 Mg Tab PO 650 mg Q4H PRN Administration Pain MILD(1-3)/Fever >100.5/BOWEN Albuterol 2.5 mg 04/01/22 20:57 Albuterol 2.5 Mg/3 Ml Nebu IH Q3HRT PRN Wheezing Albuterol/Ipratropium 1 ampul 04/02/22 20:00 04/05/22 09:08 Ipratropium/Albuterol Sulfate 3 Ml Ampul.Neb IH 1 ampul TIDRT GOGO Administration Azithromycin 500 mg 04/02/22 18:00 04/04/22 17:22 Azithromycin 250 Mg Tab PO 04/05/22 18:01 500 mg QPM GOGO Administration Guaifenesin 200 mg 04/02/22 00:43 04/04/22 20:23 Guaifenesin 100 Mg/5 Ml Oral Liqd PO 200 mg Q6HR PRN Administration Cough Ceftriaxone Sodium 2 gm in 100 mls @ 200 mls/hr 04/02/22 17:00 04/04/22 17:22 Rocephin/Ns 2 Gm/100 Ml IV 04/05/22 23:59 200 mls/hr Q24H GOGO Administration Protocol Sodium Chloride 1,000 mls @ 125 mls/hr 04/02/22 11:00 04/05/22 02:04 Nacl 0.9% 1000 Ml IV 125 mls/hr DIRECT GOGO Administration Lisinopril 20 mg 04/01/22 21:00 04/05/22 09:09 Lisinopril 20 Mg Tab PO 20 mg QDAY GOGO Administration Methocarbamol 500 mg 04/01/22 20:41 Methocarbamol 500 Mg Tab PO TID PRN Muscle Spasm Metoclopramide HCl 10 mg 04/01/22 20:48 Metoclopramide 10 Mg/2 Ml Inj IV Q6H PRN Nausea And Vomiting Morphine Sulfate 2 mg 04/01/22 20:48 Morphine 2 Mg/1 Ml Inj IV Q4H PRN Pain, Moderate (4-6) Ondansetron HCl 4 mg 04/01/22 20:43 Ondansetron 4 Mg/2 Ml Inj IV Q8H PRN Nausea And Vomiting Oxycodone/Acetaminophen 1 tab 04/01/22 20:48 04/03/22 22:42 Oxycodone /Acetaminophen 5-325mg Tab PO 1 tab Q6H PRN Administration Pain, Moderate (4-6) Pantoprazole Sodium 40 mg 04/02/22 07:30 04/05/22 09:09 Pantoprazole 40 Mg Tab PO 40 mg QDAC GOGO Administration Phenol 1 spray 04/02/22 00:17 04/04/22 20:20 Phenol 1.4% 177 Ml Bottle MM 1 spray BID PRN Administration Sore Throat Sodium Chloride 10 ml 04/01/22 22:00 04/04/22 21:34 Sodium Chloride 0.9% 10 Ml Flush Syringe IV 10 ml BID GOGO Administration Sodium Chloride 10 ml 04/01/22 20:43 Sodium Chloride 0.9% 10 Ml Flush Syringe IV PRN PRN LINE FLUSH
--- NOTE | 2022-04-05 11:20 | Progress Note ---
Assessment and Plan Cultures: COVID-19 PCR: Negative 04/01/2022 blood culture: No growth 04/04/2022 HIV: Nonreactive A/P: 46-year-old male with hypertension, anemia with: #Bilateral interstitial pneumonia: Chronic, going on since November 2021. Infectious v/s inflammatory. RA factor positive: 21. Ferritin 2290, LDH 328, CRP 18.1. Born in [place], has only lived in [place] and [place]. He used to work at [employer]. Denies any sick contacts. Denies smoking, alcohol or any drug use. Denies homelessness, denies history of incarceration. HIV negative. #Extensive mediastinal, paratracheal, hilar and axillary lymphadenopathy #Leukocytosis, reactive thrombocytosis Recs: -Complete 5 days of ceftriaxone, azithromycin (stop today) -Appreciate pulmonary evaluation, agree with recommendations regarding need for possible tissue biopsy through CT surgery. If that is being pursued, okay from ID standpoint for discharge. No discharge antibiotics recommended -f/u autoimmune work-up -f/u sputum culture Frandy Luke MD, FACP, [facility] ([facility] O: [phone] F: [phone] C: [phone] Subjective Date of service: 04/05/22 Interval history: No new complaints. No fever. Discussed HIV negative results with patient. Objective - Exam Narrative Exam: Physical Exam: Constitutional: Alert, cooperative. No acute distress Head, Ears, Nose: Normocephalic, atraumatic. External ears, nose normal Eyes: Conjunctivae/corneas clear. No icterus. No ptosis. Neck: Supple, no meningeal signs Cardiovascular: S1, S2 + Respiratory: Bilateral crackles GI: Soft, non-tender; bowel sounds normal. No peritoneal signs Musculoskeletal: No pedal edema, no cyanosis. Skin: No rash or abscess Hem/Lymphatic: No palpable cervical or supraclavicular nodes. No lymphangitis Psych: Mood ok. Affect normal Neurological: Awake, alert, oriented. No gross abnormality - Constitutional Vitals: Vital Signs Temp Pulse Resp BP Pulse Ox 97.9 F 115 H 18 114/79 96 04/05/22 09:13 04/05/22 09:13 04/05/22 09:13 04/05/22 09:13 04/05/22 10:49 Temperature -Last 24 Hours Temperature 97.9 F Temperature 98.8 F Temperature 98.2 F Temperature 98.2 F Temperature 98.2 F - Labs CBC & Chem 7: 04/04/22 09:19 04/04/22 09:19
[2022-04-05] MEDS: guaiFENesin 100 MG/5 ML ORAL LIQD PO PRN ×2 (13:09→21:38)
[2022-04-05] MEDS: cefTRIAXone/NS 2 GM/100 ML 2 GM/100 ML BAG IV SCH (18:16)
[2022-04-05] MEDS: AZITHROMYCIN 250 MG TAB PO SCH (18:16)
[2022-04-05] MEDS: PHENOL 1.4% 177 ML BOTTLE MM PRN (18:17)
[2022-04-06] MEDS: SODIUM CHLORIDE 0.9% 1000 ML 1,000 ML IV SCH ×2 (05:43→18:53)
[2022-04-06 06:58] LABS: Basophils % (Auto) 0.2 % (0.0-1.8); Eosinophils # (Auto) 0.2 K/mm3 (0.0-0.4); Eosinophils % (Auto) 1.4 % (0.0-4.3); Lymphocytes % (Auto) 8.5 % (13.4-35.0); Mean Corpuscular HGB Conc 29 % (32-34); Monocytes # (Auto) 0.7 K/mm3 (0.0-0.8); Monocytes % (Auto) 5.4 % (0.0-7.3); Platelet Count 591 K/mm3 (140-440); Red Blood Count 3.62 M/mm3 (3.65-5.03)
[2022-04-06 07:03] LABS: Hemoglobin 6.6 gm/dl (11.8-15.2); Mean Corpuscular Volume 63 fl (84-94)
[2022-04-06 07:22] LABS: Blood Urea Nitrogen 9 mg/dL (9-20); Calcium 7.9 mg/dL (8.4-10.2); Hemolysis Index 0
[2022-04-06 07:24] LABS: BUN/Creatinine Ratio 15
[2022-04-06] MEDS: IPRATROPIUM/ALBUTEROL SULFATE 3 ML AMPUL.NEB IH SCH ×3 (08:37→21:38)
[2022-04-06] MEDS: ACETAMINOPHEN 325 MG TAB PO PRN (09:23)
[2022-04-06] MEDS: PANTOPRAZOLE 40 MG TAB PO SCH (09:24)
[2022-04-06] MEDS: LISINOPRIL 20 MG TAB PO SCH (09:25)
--- NOTE | 2022-04-06 11:16 | Progress Note ---
Assessment and Plan Assessment and plan: 46-year-old non-smoker male with a past medical history of hypertension and anemia presents to the hospital complaining of persistent dyspnea on minimal exertion, cough, and abnormal chest x-ray. Patient was seen here in November for similar symptoms. He was diagnosed with multifocal pneumonia and was discharged on azithromycin. Patient is vaccinated for COVID however, he did not receive the booster. He did obtain a COVID test in November after ED presentation and states it was negative. He has since followed with Dr. Russell as recently as 2 days ago. He reports that his x-ray is unchanged and he has been referred to a customs inspector. Imaging on admission revealed chest x-ray: image reviewed (Extensive bilateral lower lobe infiltrate) CT scan - chest: image reviewed (Mediastinal lymphadenopathy with diffuse interstitial alveolar groundglass opacity bilaterally more distributed in the lower lobes and peripherally.) The patient was admitted with diagnosis below: Acute hypoxic respiratory failure Sepsis secondary to possible gram-negative bill pneumonia Bilateral interstitial lung disease inflammatory versus infectious. Mediastinal adenopathy related to above Post COVID fatigue syndrome Possible bronchiectasis secondary to post-COVID Anemia likely of chronic disorder Hypertension Tobacco abuse Thrombocytosis Hospital course: 04/02: -Discussed with pulmonology agree with current work-up which include: Sputum for gram stain and C&S and AFB smear and culture, Check for markers of inflammation such as CRP, Basic check for collagen vascular disorder and sarcoidosis and possible bronchoscopy for biopsy -Continue with antibiotic therapy -Doubt that the patient has any reactive airway disease as a result we will steroids it may affect the work-up and the results of the testing -If no clinical improvement will obtain ID consultation -Continue nebulizer as needed - The combination of weight loss, chronic cough, severe anemia, adenopathy and thrombocytosis lead to considering chronic infection, inflammation, malignancy or otherwise -We will check stool for occult blood and if positive will obtain GI evaluation -Extensive counseling on tobacco use cessation presented to the patient he verbalized understanding -DVT and GI prophylaxis we will use SCDs for DVT prophylaxis at this time considering severe anemia - Called and updated the patients brother -35 minutes advance care planning including preventive care discussion. Patient verbalized understanding. 04/03: Work-up still ongoing AFB smear and culture were not collected I discussed with nursing staff to obtain this. This can be followed outpatient as we do not believe the patient has active tuberculosis at this time. I am also obtaining a home O2 evaluation and treat. Based on this result and if patient's leukocytosis begins to trend downwards patient can be discharged in a.m. Leukocytosis is the reason why we are keeping the patient an additional day we will continue antibiotics. He is not on steroids and as a result I expect that the leukocytosis will be trending down. He has an elevated CRP which favors infection versus inflammation we will continue to monitor closely. 04/04: Follow-up sputum for gram stain and C&S and AFB smear and culture, Check for markers of inflammation such as CRP, Basic check for collagen vascular disor jovana and sarcoidosis and possible bronchoscopy for biopsy -Continue with antibiotic therapy -Doubt that the patient has any reactive airway disease as a result we will steroids it may affect the work-up and the results of the testing -We will obtain ID consultation given the worsening leukocytosis -Continue nebulizer as needed - The combination of weight loss, chronic cough, severe anemia, adenopathy and thrombocytosis lead to considering chronic infection, inflammation, malignancy or otherwise -Follow-up stool for occult blood and if positive will obtain GI evaluation -DVT and GI prophylaxis we will use SCDs for DVT prophylaxis at this time considering severe anemia 04/05: Pulmonary feels that the patient should be referred to CT surgery for a meet and surgical lung biopsy all-in-one procedure. Patient will also have ABAD panel including VALENTIN, dsDNA, anti-Jo1, anti-Ro and anti-LA, anti-CCP Aldolase, Anti SCL 70 and PM-1 (also known as PM-ScL). Infectious disease recommends completion of 5 days of ceftriaxone/azithromycin. Also ID agrees with need for BAL for cytology, cultures for fungal, AFB and bacterial and possible transbronchial biopsy. Patient reportedly with room air and saturations of 92%. Patient will likely need walk test at the time of discharge. Leukocytosis has improved 04/06: We will continue to follow-up serologies and I will discuss with pulmonary today plans for mead and surgical lung biopsy. Patient appears to be hypoxic and likely in need of O2. We will have respiratory therapy evaluate for O2 needs. Walk test prior to discharge. History Interval history: No new issues overnight Hospitalist Physical - Constitutional Vitals: Temp Pulse Resp BP Pulse Ox 97.6 F 109 H 18 122/83 96 04/06/22 05:02 04/06/22 05:02 04/06/22 09:23 04/06/22 05:02 04/06/22 10:14 General appearance: Present: no acute distress, well-nourished - EENT Eyes: Present: PERRL, EOM intact ENT: hearing intact, clear oral mucosa, dentition normal - Neck Neck: Present: supple, normal ROM - Respiratory Respiratory effort: normal Respiratory: bilateral: CTA - Cardiovascular Rhythm: regular Heart Sounds: Present: S1 & S2. Absent: gallop, rub - Extremities Extremities: no ischemia, No edema, Full ROM - Abdominal General gastrointestinal: soft, non-tender, non-distended, normal bowel sounds - Integumentary Integumentary: Present: clear, warm, dry - Neurologic Neurologic: CNII-XII intact, moves all extremities Results - Labs CBC & Chem 7: 04/06/22 06:04 04/06/22 06:04 Labs: Laboratory Last Values WBC 12.3 K/mm3 (4.5-11.0) H 04/06/22 06:04 RBC 3.62 M/mm3 (3.65-5.03) L 04/06/22 06:04 Hgb 6.6 gm/dl (11.8-15.2) L 04/06/22 06:04 Hct 23.0 % (35.5-45.6) L 04/06/22 06:04 MCV 63 fl (84-94) L 04/06/22 06:04 MCH 18 pg (28-32) L 04/06/22 06:04 MCHC 29 % (32-34) L 04/06/22 06:04 RDW 20.0 % (13.2-15.2) H 04/06/22 06:04 Plt Count 591 K/mm3 (140-440) H 04/06/22 06:04 Lymph % (Auto) 8.5 % (13.4-35.0) L 04/06/22 06:04 [place] % (Auto) 5.4 % (0.0-7.3) 04/06/22 06:04 Eos % (Auto) 1.4 % (0.0-4.3) 04/06/22 06:04 Baso % (Auto) 0.2 % (0.0-1.8) 04/06/22 06:04 Lymph # (Auto) 1.0 K/mm3 (1.2-5.4) L 04/06/22 06:04 [place] # (Auto) 0.7 K/mm3 (0.0-0.8) 04/06/22 06:04 Eos # (Auto) 0.2 K/mm3 (0.0-0.4) 04/06/22 06:04 Baso # (Auto) 0.0 K/mm3 (0.0-0.1) 04/06/22 06:04 Add Manual Diff Complete 04/02/22 06:32 Total Counted 100 04/02/22 06:32 Seg Neutrophils % 84.5 % (40.0-70.0) H 04/06/22 06:04 Seg Neuts % (Manual) 95.0 % (40.0-70.0) H 04/02/22 06:32 Band Neutrophils % 1.0 % 04/02/22 06:32 Lymphocytes % (Manual) 4.0 % (13.4-35.0) L 04/02/22 06:32 Reactive Lymphs % (Man) 0 % 04/02/22 06:32 Monocytes % (Manual) 0 % (0.0-7.3) 04/02/22 06:32 Eosinophils % (Manual) 0 % (0.0-4.3) 04/02/22 06:32 Basophils % (Manual) 0 % (0.0-1.8) 04/02/22 06:32 Metamyelocytes % 0 % 04/02/22 06:32 Myelocytes % 0 % 04/02/22 06:32 Promyelocytes % 0 % 04/02/22 06:32 Blast Cells % 0 % 04/02/22 06:32 Nucleated RBC % Not Reportable 04/02/22 06:32 Seg Neutrophils # 10.4 K/mm3 (1.8-7.7) H 04/06/22 06:04 Seg Neutrophils # Man 15.9 K/mm3 (1.8-7.7) H 04/02/22 06:32 Band Neutrophils # 0.2 K/mm3 04/02/22 06:32 Lymphocytes # (Manual) 0.7 K/mm3 (1.2-5.4) L 04/02/22 06:32 Abs React Lymphs (Man) 0.0 K/mm3 04/02/22 06:32 Monocytes # (Manual) 0.0 K/mm3 (0.0-0.8) 04/02/22 06:32 Eosinophils # (Manual) 0.0 K/mm3 (0.0-0.4) 04/02/22 06:32 Basophils # (Manual) 0.0 K/mm3 (0.0-0.1) 04/02/22 06:32 Metamyelocytes # 0.0 K/mm3 04/02/22 06:32 Myelocytes # 0.0 K/mm3 04/02/22 06:32 Promyelocytes # 0.0 K/mm3 04/02/22 06:32 Blast Cells # 0.0 K/mm3 04/02/22 06:32 WBC Morphology Not Reportable 04/02/22 06:32 Hypersegmented Neuts Not Reportable 04/02/22 06:32 Hyposegmented Neuts Not Reportable 04/02/22 06:32 Hypogranular Neuts Not Reportable 04/02/22 06:32 Smudge Cells Not Reportable 04/02/22 06:32 Toxic Granulation Not Reportable 04/02/22 06:32 Toxic Vacuolation Not Reportable 04/02/22 06:32 Dohle Bodies Not Reportable 04/02/22 06:32 Pelger-Huet Anomaly Not Reportable 04/02/22 06:32 Zach Rods Not Reportable 04/02/22 06:32 Platelet Estimate Consistent w auto 04/02/22 06:32 Clumped Platelets Not Reportable 04/02/22 06:32 Plt Clumps, EDTA Not Reportable 04/02/22 06:32 Large Platelets Not Reportable 04/02/22 06:32 Giant Platelets Not Reportable 04/02/22 06:32 Platelet Satelliting Not Reportable 04/02/22 06:32 Plt Morphology Comment Not Reportable 04/02/22 06:32 RBC Morphology Not Reportable 04/02/22 06:32 Dimorphic RBCs Not Reportable 04/02/22 06:32 Polychromasia Not Reportable 04/02/22 06:32 Hypochromasia 2+ 04/02/22 06:32 Poikilocytosis Not Reportable 04/02/22 06:32 Anisocytosis 1+ 04/02/22 06:32 Microcytosis 2+ 04/02/22 06:32 Macrocytosis Not Reportable 04/02/22 06:32 Spherocytes Not Reportable 04/02/22 06:32 Pappenheimer Bodies Not Reportable 04/02/22 06:32 Sickle Cells Not Reportable 04/02/22 06:32 Target Cells Not Reportable 04/02/22 06:32 Tear Drop Cells Not Reportable 04/02/22 06:32 Ovalocytes Not Reportable 04/02/22 06:32 Helmet Cells Not Reportable 04/02/22 06:32 Marquis-Gillespie Bodies Not Reportable 04/02/22 06:32 [place] Rings Not Reportable 04/02/22 06:32 Hayes Cells Not Reportable 04/02/22 06:32 Bite Cells Not Reportable 04/02/22 06:32 Crenated Cell Not Reportable 04/02/22 06:32 Elliptocytes Not Reportable 04/02/22 06:32 Acanthocytes (Spur) Not Reportable 04/02/22 06:32 Rouleaux Not Reportable 04/02/22 06:32 Hemoglobin C Crystals Not Reportable 04/02/22 06:32 Schistocytes Not Reportable 04/02/22 06:32 Malaria parasites Not Reportable 04/02/22 06:32 Maxim Bodies Not Reportable 04/02/22 06:32 Hem Pathologist Commnt No 04/02/22 06:32 PT 16.4 Sec. (12.2-14.9) H 04/01/22 13:39 INR 1.18 (0.87-1.13) H 04/01/22 13:39 APTT 44.2 Sec. (24.2-36.6) H 04/01/22 13:39 Sodium 136 mmol/L (137-145) L 04/06/22 06:04 Potassium 3.1 mmol/L (3.6-5.0) L 04/06/22 06:04 Chloride 102.9 mmol/L (98-107) 04/06/22 06:04 Carbon Dioxide 22 mmol/L (22-30) 04/06/22 06:04 Anion Gap 14 mmol/L 04/06/22 06:04 BUN 9 mg/dL (9-20) 04/06/22 06:04 Creatinine 0.6 mg/dL (0.8-1.3) L 04/06/22 06:04 Estimated GFR > 60 ml/min 04/06/22 06:04 BUN/Creatinine Ratio 15 % 04/06/22 06:04 Glucose 116 mg/dL (75-100) H 04/06/22 06:04 Lactic Acid 1.00 mmol/L (0.7-2.0) 04/01/22 16:04 Calcium 7.9 mg/dL (8.4-10.2) L 04/06/22 06:04 Iron 11 ug/dL (49-181) L 04/02/22 06:32 TIBC 144 mcg/dL (250-450) L 04/02/22 06:32 Ferritin 2290.0 ng/mL (30.0-300.0) H 04/02/22 06:32 Total Bilirubin < 0.20 mg/dL (0.1-1.2) 04/02/22 06:32 AST 30 units/L (5-40) 04/02/22 06:32 ALT 24 units/L (7-56) 04/02/22 06:32 Alkaline Phosphatase 49 units/L (35-129) 04/02/22 06:32 Lactate Dehydrogenase 328 units/L (91-180) H 04/02/22 06:32 C-Reactive Protein 18.10 mg/dL (0.00-1.30) H 04/02/22 06:32 C-Reactive Protein Cancelled 04/02/22 06:32 Total Protein 6.7 g/dL (6.3-8.2) 04/02/22 06:32 Albumin 2.9 g/dL (3.9-5) L 04/02/22 06:32 Albumin/Globulin Ratio 0.8 % 04/02/22 06:32 Procalcitonin 0.42 ng/mL (<0.15) 04/01/22 13:39 Rheumatoid Factor 21 IU/ml (0-13) H 04/02/22 06:32 Coronavirus (PCR) Negative (Negative) 04/02/22 10:05 HIV 1&2 Antibody Rapid Non react (Non React) 04/04/22 14:35 HIV P24 Antigen Non react (Non React) 04/04/22 14:35 Microbiology: Microbiology 04/01/22 16:04 Peripheral/Venous Blood Culture - Preliminary NO GROWTH AFTER 4 DAYS 04/01/22 16:04 Peripheral/Venous Blood Culture - Preliminary NO GROWTH AFTER 4 DAYS Pruett/IV: Voiding Method Urinal Active Medications - Current Medications Current Medications: Generic Name Dose Route Start Last Admin Trade Name Freq PRN Reason Stop Dose Admin Acetaminophen 650 mg 04/01/22 20:43 04/06/22 09:23 Acetaminophen 325 Mg Tab PO 650 mg Q4H PRN Administration Pain MILD(1-3)/Fever >100.5/BOWEN Albuterol 2.5 mg 04/01/22 20:57 Albuterol 2.5 Mg/3 Ml Nebu IH Q3HRT PRN Wheezing Albuterol/Ipratropium 1 ampul 04/02/22 20:00 04/06/22 08:37 Ipratropium/Albuterol Sulfate 3 Ml Ampul.Neb IH 1 ampul TIDRT GOGO Administration Guaifenesin 200 mg 04/02/22 00:43 04/05/22 21:38 Guaifenesin 100 Mg/5 Ml Oral Liqd PO 200 mg Q6HR PRN Administration Cough Sodium Chloride 1,000 mls @ 125 mls/hr 04/02/22 11:00 04/06/22 05:43 Nacl 0.9% 1000 Ml IV 125 mls/hr DIRECT GOGO Administration Lisinopril 20 mg 04/01/22 21:00 04/06/22 09:25 Lisinopril 20 Mg Tab PO 20 mg QDAY GOGO Administration Methocarbamol 500 mg 04/01/22 20:41 Methocarbamol 500 Mg Tab PO TID PRN Muscle Spasm Metoclopramide HCl 10 mg 04/01/22 20:48 Metoclopramide 10 Mg/2 Ml Inj IV Q6H PRN Nausea And Vomiting Morphine Sulfate 2 mg 04/01/22 20:48 Morphine 2 Mg/1 Ml Inj IV Q4H PRN Pain, Moderate (4-6) Ondansetron HCl 4 mg 04/01/22 20:43 Ondansetron 4 Mg/2 Ml Inj IV Q8H PRN Nausea And Vomiting Oxycodone/Acetaminophen 1 tab 04/01/22 20:48 04/03/22 22:42 Oxycodone /Acetaminophen 5-325mg Tab PO 1 tab Q6H PRN Administration Pain, Moderate (4-6) Pantoprazole Sodium 40 mg 04/02/22 07:30 04/06/22 09:24 Pantoprazole 40 Mg Tab PO 40 mg QDAC GOGO Administration Phenol 1 spray 04/02/22 00:17 04/05/22 18:17 Phenol 1.4% 177 Ml Bottle MM 1 spray BID PRN Administration Sore Throat Sodium Chloride 10 ml 04/01/22 22:00 04/06/22 09:25 Sodium Chloride 0.9% 10 Ml Flush Syringe IV 10 ml BID GOGO Administration Sodium Chloride 10 ml 04/01/22 20:43 Sodium Chloride 0.9% 10 Ml Flush Syringe IV PRN PRN LINE FLUSH
--- NOTE | 2022-04-06 15:15 | Progress Note ---
Assessment and Plan Cultures: COVID-19 PCR: Negative 04/01/2022 blood culture: No growth 04/04/2022 HIV: Nonreactive A/P: 46-year-old male with hypertension, anemia with: #Bilateral interstitial pneumonia: Chronic, going on since November 2021. Infectious v/s inflammatory. RA factor positive: 21. Ferritin 2290, LDH 328, CRP 18.1. Born in [place], has only lived in [place] and [place]. He used to work at [employer]. Denies any sick contacts. Denies smoking, alcohol or any drug use. Denies homelessness, denies history of incarceration. HIV negative. #Extensive mediastinal, paratracheal, hilar and axillary lymphadenopathy #Leukocytosis, reactive thrombocytosis Recs: -antibiotics completed -Appreciate pulmonary evaluation, agree with recommendations regarding need for possible tissue biopsy through CT surgery. If that is being pursued, okay from ID standpoint for discharge. -f/u autoimmune work-up -outpt f/u with pulmonary Frandy Luke MD, FACP, [facility] ([facility] O: [phone] F: [phone] C: [phone] Subjective Date of service: 04/06/22 Interval history: No new complaints. No fever. Objective - Exam Narrative Exam: Physical Exam: Constitutional: Alert, cooperative. No acute distress Head, Ears, Nose: Normocephalic, atraumatic. External ears, nose normal Eyes: Conjunctivae/corneas clear. No icterus. No ptosis. Neck: Supple, no meningeal signs Cardiovascular: S1, S2 + Respiratory: Bilateral crackles GI: Soft, non-tender; bowel sounds normal. No peritoneal signs Musculoskeletal: No pedal edema, no cyanosis. Skin: No rash or abscess Hem/Lymphatic: No palpable cervical or supraclavicular nodes. No lymphangitis Psych: Mood ok. Affect normal Neurological: Awake, alert, oriented. No gross abnormality - Constitutional Vitals: Vital Signs Temp Pulse Resp BP Pulse Ox 98.5 F 107 H 20 113/69 97 04/06/22 10:54 04/06/22 10:54 04/06/22 10:54 04/06/22 10:54 04/06/22 10:54 Temperature -Last 24 Hours Temperature 98.5 F Temperature 97.6 F Temperature 98.4 F Temperature 98.1 F - Labs CBC & Chem 7: 04/06/22 06:04 04/06/22 06:04 Labs: Abnormal lab results 04/06/22 04/06/22 Range/Units 06:04 06:04 WBC 12.3 H (4.5-11.0) K/mm3 RBC 3.62 L (3.65-5.03) M/mm3 Hgb 6.6 L (11.8-15.2) gm/dl Hct 23.0 L (35.5-45.6) % MCV 63 L (84-94) fl MCH 18 L (28-32) pg MCHC 29 L (32-34) % RDW 20.0 H (13.2-15.2) % Plt Count 591 H (140-440) K/mm3 Lymph % (Auto) 8.5 L (13.4-35.0) % Lymph # (Auto) 1.0 L (1.2-5.4) K/mm3 Seg Neutrophils % 84.5 H (40.0-70.0) % Seg Neutrophils # 10.4 H (1.8-7.7) K/mm3 Sodium 136 L (137-145) mmol/L Potassium 3.1 L (3.6-5.0) mmol/L Creatinine 0.6 L (0.8-1.3) mg/dL Glucose 116 H (75-100) mg/dL Calcium 7.9 L (8.4-10.2) mg/dL
[2022-04-07 05:17] VITALS: BP 125/74
[2022-04-07 07:29] LABS: Basophils % (Auto) 0.4 % (0.0-1.8); Eosinophils # (Auto) 0.3 K/mm3 (0.0-0.4); Eosinophils % (Auto) 2.5 % (0.0-4.3); Hematocrit 23.2 % (35.5-45.6); Lymphocytes # (Auto) 1.2 K/mm3 (1.2-5.4); Mean Corpuscular HGB Conc 30 % (32-34); Monocytes # (Auto) 0.6 K/mm3 (0.0-0.8); Monocytes % (Auto) 5.9 % (0.0-7.3); Platelet Count 633 K/mm3 (140-440); Red Blood Count 3.68 M/mm3 (3.65-5.03)
[2022-04-07 07:32] LABS: Mean Corpuscular Volume 63 fl (84-94); Red Cell Distribution Width 20.4 % (13.2-15.2)
[2022-04-07 07:49] LABS: BUN/Creatinine Ratio 9; Blood Urea Nitrogen 6 mg/dL (9-20); Hemolysis Index 0
--- NOTE | 2022-04-07 08:24 | Discharge Summary ---
Providers - Providers Date of Admission: 04/01/22 21:21 Date of discharge: 04/07/22 Attending physician: TATIANA DAMON 04/01/22 18:30 Consult to Physician [CONS] Urgent Comment: Consulting Provider: HARESH MARES Physician Instructions: Reason For Exam: exertional hypoxia, abnormal lung ct 04/04/22 09:52 Consult to Physician [CONS] Routine Comment: Consulting Provider: GEO CONTRERAS Physician Instructions: Reason For Exam: sepsis Primary care physician: LIZA RUSSELL Hospitalization Reason for admission: sob Condition: Stable Hospital course: 46-year-old non-smoker male with a past medical history of hypertension and anemia presents to the hospital complaining of persistent dyspnea on minimal exertion, cough, and abnormal chest x-ray. Patient was seen here in November for similar symptoms. He was diagnosed with multifocal pneumonia and was discharged on azithromycin. Patient is vaccinated for COVID however, he did not receive the booster. He did obtain a COVID test in November after ED presentation and states it was negative. He has since followed with Dr. Russell as recently as 2 days ago. He reports that his x-ray is unchanged and he has been referred to a communications tech. Imaging on admission revealed chest x-ray: image reviewed (Extensive bilateral lower lobe infiltrate) CT scan - chest: image reviewed (Mediastinal lymphadenopathy with diffuse interstitial alveolar groundglass opacity bilaterally more distributed in the lower lobes and peripherally.) The patient was admitted with diagnosis below: Acute hypoxic respiratory failure Sepsis secondary to possible gram-negative bill pneumonia Bilateral interstitial lung disease inflammatory versus infectious. Mediastinal adenopathy related to above Post COVID fatigue syndrome Possible bronchiectasis secondary to post-COVID Anemia likely of chronic disorder Hypertensio Tobacco abuse Thrombocytosis Hospital course: 04/02: -Discussed with pulmonology agree with current work-up which include: Sputum for gram stain and C&S and AFB smear and culture, Check for markers of inflammation such as CRP, Basic check for collagen vascular disorder and sarcoidosis and possible bronchoscopy for biopsy -Continue with antibiotic therapy -Doubt that the patient has any reactive airway disease as a result we will steroids it may affect the work-up and the results of the testing -If no clinical improvement will obtain ID consultation -Continue nebulizer as needed - The combination of weight loss, chronic cough, severe anemia, adenopathy and thrombocytosis lead to considering chronic infection, inflammation, malignancy or otherwise -We will check stool for occult blood and if positive will obtain GI evaluation -Extensive counseling on tobacco use cessation presented to the patient he verbalized understanding -DVT and GI prophylaxis we will use SCDs for DVT prophylaxis at this time considering severe anemia - Called and updated the patients brother -35 minutes advance care planning including preventive care discussion. Patient verbalized understanding. 04/03: Work-up still ongoing AFB smear and culture were not collected I discussed with nursing staff to obtain this. This can be followed outpatient as we do not believe the patient has active tuberculosis at this time. I am also obtaining a home O2 evaluation and treat. Based on this result and if patient's leukocytosis begins to trend downwards patient can be discharged in a.m. Leukocytosis is the reason why we are keeping the patient an additional day we will continue antibiotics. He is not on steroids and as a result I expect that the leukocytosis will be trending down. He has an elevated CRP which favors infection versus inflammation we will continue to monitor closely. 04/04: Follow-up sputum for gram stain and C&S and AFB smear and culture, Check for markers of inflammation such as CRP, Basic check for collagen vascular disorder and sarcoidosis and possible bronchoscopy for biopsy -Continue with antibiotic therapy -Doubt that the patient has any reactive airway disease as a result we will steroids it may affect the work-up and the results of the testing -We will obtain ID consultation given the worsening leukocytosis -Continue nebulizer as needed - The combination of weight loss, chronic cough, severe anemia, adenopathy and thrombocytosis lead to considering chronic infection, inflammation, malignancy or otherwise -Follow-up stool for occult blood and if positive will obtain GI evaluation -DVT and GI prophylaxis we will use SCDs for DVT prophylaxis at this time considering severe anemia 04/05: Pulmonary feels that the patient should be referred to CT surgery for a meet and surgical lung biopsy all-in-one procedure. Patient will also have ABAD panel including VALENTIN, dsDNA, anti-Jo1, anti-Ro and anti-LA, anti-CCP Aldolase, Anti SCL 70 and PM-1 (also known as PM-ScL). Infectious disease recommends completion of 5 days of ceftriaxone/azithromycin. Also ID agrees with need for BAL for cytology, cultures for fungal, AFB and bacterial and possible transb ronchial biopsy. Patient reportedly with room air and saturations of 92%. Patient will likely need walk test at the time of discharge. Leukocytosis has improved 04/06: We will continue to follow-up serologies and I will discuss with pulmonary today plans for mead and surgical lung biopsy. Patient appears to be hypoxic and likely in need of O2. We will have respiratory therapy evaluate for O2 needs. Walk test prior to discharge. 04/07: ID reports the bilateral interstitial pneumonia/infiltrates have been chronic ongoing since November 2021. Etiology may be infectious versus inflammatory. RA factor positive: 21. Ferritin 2290, LDH 328, CRP 18.1. Born in [place], has only lived in [place] and [place]. He used to work at [employer]. Denies any sick contacts. Denies smoking, alcohol or any drug use. Denies homelessness, denies history of incarceration. HIV negative. Patient also with extensive mediastinal, paratracheal, hilar and axillary lymphadenopathy. Antibiotics have been completed. Pulmonary and ID agreed the patient can discharge home with need for possible tissue biopsy through CT surgery. Patient will need to follow-up with pulmonary as an outpatient for autoimmune work-up and the various serologies. Patient will have walk test prior to discharge for home O2. Dedicated discharge time 39 minutes Disposition: HOME / SELF CARE / HOMELESS Final Discharge Diagnosis (Prints w/discharge instructions): Acute hypoxic respiratory failure. Sepsis secondary to possible gram-negative bill pneumonia. Bilateral interstitial lung disease inflammatory versus infectious. Mediastinal adenopathy related to above. Post COVID fatigue syndrome. Possible bronchiectasis secondary to post-COVID. Anemia likely of chronic disorder. Hypertensio. Tobacco abuse. Thrombocytosis Core Measure Documentation - Palliative Care Palliative Care/ Comfort Measures: Not Applicable - Core Measures Any of the following diagnoses?: none Exam - Constitutional Vitals: Temp Pulse Resp BP Pulse Ox 98.2 F 108 H 16 125/74 95 04/07/22 04:47 04/07/22 04:47 04/07/22 04:47 04/07/22 04:47 04/07/22 04:47 General appearance: Present: no acute distress, well-nourished - EENT Eyes: Present: PERRL ENT: hearing intact, clear oral mucosa - Neck Neck: Present: supple, normal ROM - Respiratory Respiratory effort: normal Respiratory: bilateral: CTA - Cardiovascular Heart Sounds: Present: S1 & S2. Absent: rub, click - Extremities Extremities: pulses symmetrical, No edema Peripheral Pulses: within normal limits - Abdominal General gastrointestinal: Present: soft, non-tender, non-distended, normal bowel sounds Male genitourinary: Present: normal - Integumentary Integumentary: Present: clear, warm, dry - Musculoskeletal Musculoskeletal: gait normal, strength equal bilaterally - Psychiatric Psychiatric: appropriate mood/affect, intact judgment & insight - Neurologic Neurologic: CNII-XII intact, moves all extremities Plan Activity: advance as tolerated Weight Bearing Status: Weight Bear as Tolerated Diet: regular Follow up with: LIZA RUSSELL MD [Primary Care Provider] - 3-5 Days CLAUDIA LUCAS MD [Staff Physician] - 7 Days GEO CONTRERAS MD [Staff Physician] - 7 Days Prescriptions: lisinopriL [Zestril TAB] 20 mg PO QDAY #30 tablet
[2022-04-07] MEDS: IPRATROPIUM/ALBUTEROL SULFATE 3 ML AMPUL.NEB IH SCH (09:02)
[2022-04-07 18:28] LABS: ANA Screen, IFA Negative (Negative)
[2022-04-11 19:17] LABS: Myeloperoxidase Antibody <1.0 AI (<1.0)
== END 2022-04-07 13:30 | disposition home or self-care (01) | DRG 871 ==
LOC: ED 12:18 → 3A 21:21
PROVIDERS: ADMIT Internal Medicine; ATTEND Hospitalist
DX: A41.59 Other Gram-negative sepsis (principal); J96.01 Acute respiratory failure with hypoxia; J18.9 Pneumonia, unspecified organism; J47.0 Bronchiectasis with acute lower respiratory infection; I10 Essential (primary) hypertension; D64.9 Anemia, unspecified; D75.839 Thrombocytosis, unspecified; Z20.822 Contact with and (suspected) exposure to COVID-19
CPT/HCPCS: 36415; 71046; 71275; 80048; 80053; 82140; 82164; 82270; 82728; 83550; 83615; 84145; 85007; 85025; 85027; 85610; 85730; 86021; 86038; 86140; 86160; 86200; 86235; 86431; 87040; 87806; 93005; 94640; 94644; 94760; 96374; 96375; 99285; G0378; J0456; J0696; J1644; J2930; J7030; Q9967; U0003